=== PATIENT | female | born 1955 | race Caucasian/White ===

== ENCOUNTER 2017-08-12 11:18 | Outpatient (CLI) | payer MEDICARE, MEDICAID ==
[2017-08-12 13:19] LABS: Hemoglobin 13.9 g/dL (12.0-16.0); Mean Corpuscular HGB CONC 32.8 g/dL (32.0-36.0); Mean Corpuscular Hemoglobin 30.9 pg (27.0-31.0); Mean Corpuscular Volume 94.1 fl (81.0-99.0); Mean Platelet Volume 8.9 fL (7.4-10.4); Platelet Count 246 thou/uL (130-400); RBC Distribution Width 12.3 % (11.5-14.5); Red Blood Cell (RBC) Count 4.51 mill/uL (4.20-5.40); White Blood Cell (WBC) Count 4.3 thou/uL (4.8-10.8)
[2017-08-12 13:37] LABS: Anion Gap 15 mmol/L (10-20); BUN (Urea Nitrogen) 17 mg/dL (9.8-20.1); Calc. Creatinine Clearance 0 mL/min (70-130); Calcium 9.6 mg/dL (7.8-10.44); Carbon Dioxide 20 mmol/L (23-31); Chloride 106 mmol/L (98-107); Estimated GFR-MDRD 68; Glucose 99 mg/dL (80-115); Potassium 4.4 mmol/L (3.5-5.1); Sodium 137 mmol/L (136-145)
== END 2017-08-12 11:19 | disposition home or self-care (01) ==
LOC: LABBT 11:18
PROVIDERS: ATTEND Internal Medicine Cardiovascular Disease
DX: Z01.812 Encounter for preprocedural laboratory examination (principal); I48.0 Paroxysmal atrial fibrillation
CPT/HCPCS: 80048; 85027

== ENCOUNTER 2017-08-12 13:43 | Outpatient (CLI) | payer MEDICARE, MEDICAID | END 2017-08-12 13:44 | disposition home or self-care (01) | LOC: BICMAMMO 13:43 | PROVIDERS: ATTEND Family Medicine | DX: Z78.0 Asymptomatic menopausal state (principal); M85.88 Other specified disorders of bone density and structure, other site | CPT/HCPCS: 77080 ==

== ENCOUNTER 2017-08-17 05:55 | Day surgery (SDC) | payer MEDICARE, MEDICAID ==
[2017-08-12 11:38] VITALS: BMI 32.4
[2017-08-17] MEDS ORDERED: Diprivan 20 ML ONE (08:48)
--- NOTE | 2017-08-17 10:46 | ECHO ---
PROCEDURE NOTE: Date: 08/17/17 PROCEDURE: Transesophageal echocardiogram. DETAILS: This is a 62-year-old female with a long history of intermittent atrial fibrillation and has undergon e on ablation. She now has developed atrial flutter. She also had a flutter ablation in April 2016 . She was started on Multaq. She continues to be in atrial flutter and today she was advised to under go a transesophageal echocardiogram, as well as electrocardioversion of atrial flutter back to normal sinus rhythm. She was taken to recovery area where she underwent short-acting propofol. The transeso phageal probe was easily passed down the distal esophagus. IMPRESSION: 1. Normal left ventricular systolic function. Ejection fraction 50-55%. 2. Mild tricuspid valve regurgitation. 3. Mild mitral valve regurgitation. 4. Smoke formation in the left atrium and also smoke formation in the left atrial appendage, but no clear thrombus was noted. The patient tolerated the procedure well without difficulties or complications.
--- NOTE | 2017-08-17 10:48 | OP ---
CARDIOVERSION: Using one attempt at 100 joules, the patient was successfully converted from her atrial flutter back to normal sinus rhythm with a heart rate in the 60s. There were no difficulties or complications enco untered. She was given short-acting propofol for the procedure and tolerated the procedure well.
--- NOTE | 2017-08-17 11:58 | DIS ---
This was an outpatient procedure for Rpua Dutta. DATE OF PROCEDURE: 08/17/2017 She was seen in the outpatient facility due to atrial flutter. She was advised to undergo a cardiove rsion. She was taken to recovery area where she underwent the procedure today without difficulties o r complications. DISCHARGE MEDICATIONS: Her discharge medications are the same as her admission medications. These i nclude multivitamins, calcium, chewable fiber, probiotics, vitamin D3, magnesium, Eliquis 5 mg b.i.d. , alprazolam 0.5 mg as needed, fish oil, Claritin, iron tablets, triazolam, Lipitor 20 mg a day, Flon ase allergy relief nasal spray, vitamin B12, vitamin C, losartan/hydrochlorothiazide 100/12.5 daily, metoprolol 25 mg half a tablet daily, Norvasc 5 mg a day, Multaq 400 mg b.i.d. Her followup will be with me in the next 2-4 weeks in the office. She will continue her routine foll owups with Dr. Jc Soni. PROCEDURES IN HOSPITAL: Transesophageal echocardiogram and also electrocardioversion of atrial flutt er back to sinus rhythm. There were no difficulties or complications encountered. The patient sanya ated the procedure well. When she is stable she will be discharged to home.
[2017-08-17] MEDS ORDERED: Propofol 200 MG/20 ML VIAL ONE (15:20)
--- NOTE | 2017-08-17 20:05 | EKG ---
Test Reason : POST ARTHUR/CARDIOVERSI Blood Pressure : / mmHG Vent. Rate : 061 BPM Atrial Rate : 061 BPM P-R Int : 286 ms QRS Dur : 084 ms QT Int : 466 ms P-R-T Axes : 086 028 054 degrees QTc Int : 469 ms Sinus rhythm with 1st degree A-V block Otherwise normal ECG When compared with ECG of 28-APR-2016 21:12, No significant change was found Confirmed by SCOTTY PICHARDO, . S. (4) on 08/17/2017 8:05:17 PM Referred By: JOEY Confirmed By:DR. Nils FAJARDO MD
== END 2017-08-17 10:25 | disposition home or self-care (01) ==
LOC: CCL 05:55
PROVIDERS: ATTEND Internal Medicine Cardiovascular Disease
PROC: 5A2204Z Restoration of Cardiac Rhythm, Single (ICD-10-PCS; principal; 2017-08-17)
DX: I48.92 Unspecified atrial flutter (principal); I48.0 Paroxysmal atrial fibrillation; I08.1 Rheumatic disorders of both mitral and tricuspid valves; E78.5 Hyperlipidemia, unspecified; I10 Essential (primary) hypertension; E11.9 Type 2 diabetes mellitus without complications; Z82.49 Family history of ischemic heart disease and other diseases of the circulatory system; Z79.51 Long term (current) use of inhaled steroids; Z79.01 Long term (current) use of anticoagulants; Z79.899 Other long term (current) drug therapy
CPT/HCPCS: 92960; 93005; 93010; 93312; J2704

== ENCOUNTER 2017-12-20 20:30 | Outpatient (CLI) | payer MEDICARE, MEDICAID | END 2017-12-20 20:31 | disposition home or self-care (01) | LOC: SLEEPLAB 20:30 | PROVIDERS: ATTEND Family Medicine | DX: G47.33 Obstructive sleep apnea (adult) (pediatric) (principal); G47.30 Sleep apnea, unspecified; R53.83 Other fatigue; I48.91 Unspecified atrial fibrillation; G31.84 Mild cognitive impairment of uncertain or unknown etiology; E66.9 Obesity, unspecified; R06.83 Snoring; F41.9 Anxiety disorder, unspecified; K21.9 Gastro-esophageal reflux disease without esophagitis; I10 Essential (primary) hypertension | CPT/HCPCS: 95811 ==

== ENCOUNTER 2018-01-29 13:34 | Outpatient (CLI) | payer MEDICARE, MEDICAID | END 2018-01-29 13:35 | disposition home or self-care (01) | LOC: BICRAD 13:34 | PROVIDERS: ATTEND Family Medicine | DX: M54.2 Cervicalgia (principal); M47.892 Other spondylosis, cervical region | CPT/HCPCS: 72050 ==

== ENCOUNTER 2018-07-01 08:56 | Observation (INO) | payer MEDICARE, MEDICAID ==
[2018-06-30 11:41] VITALS: BMI 34.2
[2018-07-01] MEDS ORDERED: Furosemide 40 MG/4 ML VIAL ONE (09:15)
[2018-07-01] MEDS ORDERED: Heparin 10,000 UNITS/1 ML VIAL ONE ×3 (09:15→11:30)
[2018-07-01] MEDS ORDERED: Protamine Sulfate 50 MG/5 ML VIAL ONE (09:15)
[2018-07-01] MEDS ORDERED: Phenylephrine HCL 10 MG/ML VIAL ONE (09:15)
[2018-07-01 09:55] LABS: #Monocytes 0.3 thou/uL (0.11-0.59); #Neutrophils 2.1 thou/uL (1.40-6.50); %Basophils 1.1 % (0.0-1.0); %Eosinophils 0.9 % (0.0-10.0); %Lymphocytes 30.1 % (21.0-51.0); %Monocytes 8.1 % (0.0-10.0); %Neutrophils 59.7 % (42.0-75.0); Hemoglobin 12.3 g/dL (12.0-16.0); Mean Corpuscular HGB CONC 31.3 g/dL (32.0-36.0); Mean Corpuscular Hemoglobin 28.8 pg (27.0-31.0); Mean Corpuscular Volume 92.3 fL (78.0-98.0); Platelet Count 215 thou/uL (130-400); RBC Distribution Width 12.1 % (11.5-14.5); Red Blood Cell (RBC) Count 4.28 mill/uL (4.20-5.40); White Blood Cell (WBC) Count 3.5 thou/uL (4.8-10.8)
[2018-07-01 09:58] LABS: INR-International Normal Ratio 1.4; PTT 29.3 SEC (22.9-36.1); Prothrombin Time 17.1 SEC (12.0-14.7)
[2018-07-01] MEDS ORDERED: Midazolam HCl 2 mg/2 ml Vial ONE (10:01)
[2018-07-01] MEDS ORDERED: Fentanyl 100 MCG/2 ML VIAL ONE (10:01)
[2018-07-01 10:13] LABS: Anion Gap 13 mmol/L (10-20); BUN (Urea Nitrogen) 15 mg/dL (9.8-20.1); Calc. Creatinine Clearance 112 mL/min (70-130); Calcium 9.7 mg/dL (7.8-10.44); Carbon Dioxide 25 mmol/L (23-31); Chloride 105 mmol/L (98-107); Estimated GFR-MDRD 83; Glucose 111 mg/dL (80-115); Sodium 139 mmol/L (136-145)
[2018-07-01] MEDS ORDERED: Heparin 25,000 units/D5W 0 ML ONE ×2 (11:15→12:19)
[2018-07-01] MEDS ORDERED: Heparin 25,000 units/D5W 500 ML ONE (12:25)
--- NOTE | 2018-07-01 13:20 | EKG ---
Test Reason : PREOP Blood Pressure : / mmHG Vent. Rate : 056 BPM Atrial Rate : 300 BPM P-R Int : 000 ms QRS Dur : 088 ms QT Int : 454 ms P-R-T Axes : 000 026 035 degrees QTc Int : 438 ms Atrial Flutter Abnormal ECG When compared with ECG of 17-AUG-2017 09:15, Atrial Flutter has replaced Sinus rhythm Confirmed by SCOTTY PICHARDO, DR. Wray (4) on 07/01/2018 1:20:17 PM Referred By: CATHERINE Confirmed By:DR. Nils FAJARDO MD
[2018-07-01] MEDS ORDERED: Isoproterenol 0.2 MG/1 ML AMP ONE (14:25)
[2018-07-01] MEDS ORDERED: HYDROcodone/Acetaminophen 5/325 mg Tablet PO PRN ×2 (15:45)
[2018-07-01] MEDS ORDERED: Ondansetron PF 4 MG/2 ML Vial ONE (17:12)
[2018-07-01] MEDS ORDERED: PHENYLEPHRINE-NS 100 MCG/ML 10 ML SYRINGE ONE (17:12)
[2018-07-01] MEDS ORDERED: Lidocaine 1% PF 5 ML VIAL ONE (17:12)
[2018-07-01] MEDS ORDERED: Dexamethasone 20 MG/5 ML VIAL ONE (17:12)
[2018-07-01] MEDS ORDERED: PROPOFOL 200 MG/20 ML VIAL ONE (17:12)
[2018-07-01] MEDS ORDERED: Rocuronium Bromide 10 MG/ML (10ML VIAL) ONE (17:12)
[2018-07-01] MEDS ORDERED: ALPRAZolam 1 MG TAB PO PRN (19:51)
[2018-07-01] MEDS ORDERED: TRIAZOLAM 0.25 MG PO PRN (20:01)
[2018-07-01] MEDS ORDERED: Folic Acid 1 MG TAB PO SCH (21:00)
[2018-07-01] MEDS ORDERED: Ubidecarenone 50 MG CAP PO SCH ×2 (21:00)
[2018-07-01] MEDS ORDERED: Calcium Citrate 950 MG TAB PO SCH (21:00)
[2018-07-01] MEDS: Fish Oil 1,000 MG CAP PO SCH (21:00)
[2018-07-01] MEDS ORDERED: Hydrochlorothiazide 25 MG TAB PO SCH (21:00)
[2018-07-01] MEDS ORDERED: Losartan 25 MG TAB PO SCH (21:00)
[2018-07-01] MEDS ORDERED: Magnesium Oxide 250 MG TAB PO SCH (21:00)
[2018-07-01] MEDS: Apixaban 5 MG TAB PO SCH (21:01)
--- NOTE | 2018-07-01 22:56 | OP ---
DATE OF PROCEDURE: 07/01/2018 PROCEDURES PERFORMED: 1. Comprehensive EP testing with left atrial pacing and recording. 2. Transseptal catheterization x2. 3. A 3-dimensional mapping and ablation of atrial fibrillation. 4. Intracardiac echocardiography. CLINICAL INDICATION: Drug refractory atrial fibrillation. ASA CLASSIFICATION: 3. ANESTHESIA: General endotracheal anesthesia per Anesthesiology. ADDITIONAL CARDIAC MEDICATIONS: Isoproterenol 10 mcg/min infusion. ESTIMATED BLOOD LOSS: Less than 10 mL. TOTAL HEPARIN GIVEN: 17,000 units. TOTAL PROTAMINE GIVEN: 40 mg. ACUTE COMPLICATIONS: None apparent. TOTAL RF TIME: 38 minutes 53 seconds. METHODS: After informed consent was obtained, the patient was taken to the EP lab in a fasting state. Both groins were prepped and draped using ultrasound guidance. The right and left femoral veins were accessed and wires were inserted into the central venous system. The wires were used to place an 11-Slovenian and an 8-Slovenian sheaths in the left groin and two 8-Slovenian sheaths in the right groin. All 8-Slovenian sheaths were then replaced by long sheaths for catheter stability. An echo probe was placed in the left groin and advanced to the right atrium and right ventricle for imaging. A 20-pole catheter was placed in the left groin and advanced to the coronary sinus. The proximal end was in the james terminalis for mapping. A circular and ablation catheter was placed in the right femoral vein and advanced to the right atrium. A 3D map was obtained of the right atrium and the coronary sinus. The patient was then anticoagulated, and transseptal catheterization was performed on 2 occasions. Wires were inserted into left atrium. An esophageal temperature probe was co-located with a sensor. Catheter was placed in the esophagus and advanced to the posterior wall of the left atrium for temperature monitoring. A 3D map was obtained in the left atrium, and the patient had fractionated signals. Ablation and isolation of left atrial appendage were required, and extensive ablation of the right atrial james and the right atrial appendage were also performed. This patient's arrhythmias. The patient did require cardioversion to restore sinus rhythm. At the conclusion of procedure, catheters were withdrawn, sheaths were pulled, hemostasis was achieved with direct pressure. RESULTS: 1. Baseline intervals; QRS duration 82 milliseconds, QT interval 423 milliseconds, HV interval 45 milliseconds. 2. atrial fibrillation. Mapping was performed in left atrium. All 4 pulmonary veins were isolated from the previous ablation. Additional lesions were placed along the posterior wall and on the roof of the left atrium at fractionated signals, and complete isolation of left atrial appendage was performed. The patient's extravenous drivers were then seen in the right atrium along the james terminalis and right atrial appendage. These were ablated, debulked, and the patient had cardioversion to restore sinus rhythm. 3. Ablation details, a total of 38 minutes 53 seconds of RF energy was delivered and most of this was in the right atrium, but this does include isolation of the left atrial appendage for treatment of atrial fibrillation. IMPRESSION: Successful pulmonary vein antral isolation with re-isolation of the roof of the floor of the left atrium, complete isolation of left atrial appendage, and heavy aggressive debulking of the james terminalis and the right atrial appendage. RECOMMENDATION: 23-hour observation. Job ID: [id number]
[2018-07-02] MEDS: Fish Oil 1,000 MG CAP PO SCH (08:59)
[2018-07-02] MEDS ORDERED: PARoxetine 20 MG TAB PO SCH (09:00)
[2018-07-02] MEDS ORDERED: Fluticasone Propionate Nasal Spray 16 gm Bottle NASAL SCH (09:00)
[2018-07-02] MEDS ORDERED: Multivitamin W/ Minerals 1 TAB PO SCH (09:00)
[2018-07-02] MEDS ORDERED: Lactinex Tablet PO SCH (09:00)
[2018-07-02] MEDS ORDERED: Loratadine 10 MG TAB PO SCH (09:00)
[2018-07-02] MEDS: Apixaban 5 MG TAB PO SCH (09:01)
[2018-07-02 12:11] VITALS: BP 119/59; TEMP 98.7
--- NOTE | 2018-07-02 12:41 | DIS ---
DATE OF ADMISSION: 07/01/2018 DATE OF DISCHARGE: 07/02/2018 SURGEON: Pete Jorgensen MD ADMITTING DIAGNOSIS: Atrial arrhythmias. PROCEDURES PERFORMED: 1. Comprehensive EP testing with left atrial pacing recording. 2. Transseptal catheterization x2. 3. Three dimensional mapping and ablation of atrial fibrillation. 4. Intracardiac echocardiography. SUBJECTIVE: Ms. Dutta is a very pleasant 63-year-old woman with a prior history of left atrial ablation, mitral isthmus flutter ablation, right-sided CTI ablation in the past. In spite of this, she has had recurrences, but has been doing fairly well on Multaq, though has not captured normal rhythm. It was decided to proceed with pulmonary venous antrum isolation and ablation, which was performed on 07/01/[address] Jorgensen. Also, she has had a left atrial appendage clot in the past and likely requires long-term anticoagulation and possibly a Watchman in the future. Ms. Dutta is feeling well postablation. She does not have any cardiac concerns or complaints. She has not had any heart racing, palpitations, chest pain, pressure, syncope, near syncope, stroke, stroke-like symptoms. She is voiding well without difficulty. She is tolerating p.o. intake. Her groin sites are nontender and have not had any bleeding issues overnight. She denies any shortness of breath, and is able to breathe easily lying flat. REVIEW OF SYSTEMS: An 8-point review of systems is conducted, is negative except that was listed above in HPI. OBJECTIVE: VITAL SIGNS: Temperature 98.1, pulse 78, blood pressure 118/59, respirations 20, and oxygen is 94% on room air. GENERAL: The patient is alert and oriented. Speech is clear. Affect is appropriate. NECK: Supple without jugular venous distention. LUNGS: Clear to auscultation. Respirations are even and unlabored. ABDOMEN: Soft and nontender without palpable masses. Hepatojugular reflux is negative. EXTREMITIES: Warm and dry to touch without clubbing, cyanosis, or edema. NEUROLOGIC: Grossly intact and nonfocal. Gait is stable. DIAGNOSTIC STUDIES: Telemetry and EKG today reflect sinus rhythm with mild first-degree AV block, 240 milliseconds. IMPRESSION: Successful pulmonary vein antral isolation with re-isolation of the roof of the floor of the left atrium, complete isolation of the left atrial appendage, and heavy aggressive debulking of the james terminalis in the right atrial appendage. RECOMMENDATIONS: 23-hour observation and lifelong anticoagulation or consideration for Watchman for left atrial appendage closure given the isolation of left atrial appendage for the treatment of atrial fibrillation. Ablation time totals 38 minutes and 53 seconds, RF energy lesions delivered. DISCHARGE INSTRUCTIONS: Routine followup with [facility] in 6 weeks is requested. Continue Eliquis indefinitely postablation and contact [facility] before ever stopping this medication. Job ID: [id number]
== END 2018-07-02 12:57 | disposition home or self-care (01) ==
LOC: CCL 08:56 → 2SW 17:15
PROVIDERS: ADMIT Internal Medicine Cardiovascular Disease; ATTEND Internal Medicine Cardiovascular Disease
PROC: 02573ZK Destruction of Left Atrial Appendage, Percutaneous Approach (ICD-10-PCS; principal; 2018-07-01)
PROC: 02583ZZ Destruction of Conduction Mechanism, Percutaneous Approach (ICD-10-PCS; 2018-07-01)
PROC: 02K83ZZ Map Conduction Mechanism, Percutaneous Approach (ICD-10-PCS; 2018-07-01)
PROC: 4A023FZ Measurement of Cardiac Rhythm, Percutaneous Approach (ICD-10-PCS; 2018-07-01)
PROC: 4A0234Z Measurement of Cardiac Electrical Activity, Percutaneous Approach (ICD-10-PCS; 2018-07-01)
DX: I48.1 Persistent atrial fibrillation (principal); Z79.51 Long term (current) use of inhaled steroids; Z79.01 Long term (current) use of anticoagulants; Z79.899 Other long term (current) drug therapy
CPT/HCPCS: 76942; 80048; 85025; 85347 ×2; 85610; 85730; 92960; 93005 ×2; 93613; 93623; 93655; 93656; 93662; C1731; C1732 ×3; C1759; C1769; G0378; 93010; J1100; J1644; J1940; J2001; J2250; J2370; J2405; J2704; J2720; J3010

== ENCOUNTER 2018-11-01 19:30 | Outpatient (CLI) | payer MEDICARE, MEDICAID | END 2018-11-01 19:31 | disposition home or self-care (01) | LOC: SLEEPLAB 19:30 | PROVIDERS: ATTEND Internal Medicine | DX: G47.33 Obstructive sleep apnea (adult) (pediatric) (principal); R53.83 Other fatigue; K21.9 Gastro-esophageal reflux disease without esophagitis; R06.83 Snoring; F41.9 Anxiety disorder, unspecified; G47.00 Insomnia, unspecified; I10 Essential (primary) hypertension; I48.91 Unspecified atrial fibrillation; E66.9 Obesity, unspecified; G47.31 Primary central sleep apnea; Z68.33 Body mass index [BMI] 33.0-33.9, adult | CPT/HCPCS: 95811 ==

== ENCOUNTER 2019-02-07 12:09 | Outpatient (CLI) | payer MEDICARE, MEDICAID | END 2019-02-07 12:10 | disposition home or self-care (01) | LOC: ULT 12:09 | PROVIDERS: ATTEND Internal Medicine | DX: I10 Essential (primary) hypertension (principal); I08.1 Rheumatic disorders of both mitral and tricuspid valves; I70.90 Unspecified atherosclerosis | CPT/HCPCS: 93306 ==

== ENCOUNTER 2019-05-27 20:30 | Outpatient (CLI) | payer MEDICARE, MEDICAID | END 2019-05-27 20:31 | disposition home or self-care (01) | LOC: SLEEPLAB 20:30 | PROVIDERS: ATTEND Internal Medicine | DX: G47.33 Obstructive sleep apnea (adult) (pediatric) (principal); R53.83 Other fatigue; R06.83 Snoring; R35.1 Nocturia; G47.10 Hypersomnia, unspecified; I48.91 Unspecified atrial fibrillation; E66.9 Obesity, unspecified; Z68.34 Body mass index [BMI] 34.0-34.9, adult | CPT/HCPCS: 95811 ==

== ENCOUNTER 2019-08-04 13:46 | Inpatient (IN) | payer MEDICARE, MEDICAID ==
[2019-08-04 14:26] LABS: #Eosinphils 0.1 thou/uL (0.0-0.7); #Lymphocytes 0.9 thou/uL (1.20-3.40); #Monocytes 0.5 thou/uL (0.11-0.59); #Neutrophils 2.1 thou/uL (1.40-6.50); %Basophils 1.3 % (0.0-1.0); %Eosinophils 1.8 % (0.0-10.0); %Lymphocytes 24.8 % (21.0-51.0); %Monocytes 12.7 % (0.0-10.0); %Neutrophils 59.3 % (42.0-75.0); Hemoglobin 7.5 g/dL (12.0-16.0); Mean Corpuscular HGB CONC 32.4 g/dL (32.0-36.0); Mean Corpuscular Hemoglobin 28.1 pg (27.0-31.0); Mean Corpuscular Volume 86.5 fL (78.0-98.0); Mean Platelet Volume 7.8 fL (7.4-10.4); Platelet Count 355 thou/uL (130-400); RBC Distribution Width 14.9 % (11.5-14.5); Red Blood Cell (RBC) Count 2.66 mill/uL (4.20-5.40); White Blood Cell (WBC) Count 3.6 thou/uL (4.8-10.8)
[2019-08-04 14:58] LABS: ALT (SGPT) 12 U/L (8-55); AST (SGOT) 13 U/L (5-34); Albumin 4.1 g/dL (3.4-4.8); Alkaline Phosphatase 91 U/L (40-110); Anion Gap 13 mmol/L (10-20); BUN (Urea Nitrogen) 15 mg/dL (9.8-20.1); Bilirubin, Total 0.2 mg/dL (0.2-1.2); Calc. Creatinine Clearance 0 mL/min (70-130); Carbon Dioxide 27 mmol/L (23-31); Chloride 105 mmol/L (98-107); Estimated GFR-MDRD 69; Globulin 2.7 g/dL (2.4-3.5); Glucose 151 mg/dL (80-115); Potassium 3.7 mmol/L (3.5-5.1); Protein, Total 6.8 g/dL (6.0-8.3); Sodium 141 mmol/L (136-145)
[2019-08-04 17:24] LABS: Reticulocyte Count 1.7 % (0.5-1.5)
[2019-08-04] MEDS ORDERED: Pantoprazole 40 MG VIAL ONE (18:44)
[2019-08-04] MEDS: Pantoprazole 80 MG, Admixture Fee 1 EACH in Sodium Chloride 0.9% 100 ML IVPB SCH (19:54)
[2019-08-04 19:58] VITALS: BMI 33.6
[2019-08-04] MEDS ORDERED: Acetaminophen 650 MG Suppository PR PRN (20:57)
[2019-08-04] MEDS ORDERED: Acetaminophen 325 MG TAB PO PRN (20:57)
[2019-08-04 23:39] LABS: Hemoglobin 8.1 g/dL (12.0-16.0)
--- NOTE | 2019-08-05 00:24 | HP ---
TIME OF ASSESSMENT: 1999 CHIEF COMPLAINT: Anemia with episode of severe rectal bleeding 2 weeks ago. PRIMARY CARE PHYSICIAN: Dr. Jc Soni. HISTORY OF PRESENT ILLNESS: Ms. Dutta is a pleasant 64-year-old woman who presented to the emergency department as instructed by her primary care physician due to anemia noted on labs done yesterday. The patient was found to have a hemoglobin of 7. She was recommended a transfusion. The patient states she has been feeling lightheaded at times and with some shortness of breath on exertion. Reports having issues with anemia in the past. She underwent an EGD and colonoscopy in July of 2017 and was noted to have a hiatal hernia, otherwise examinations were unremarkable. The patient states that she did experience severe rectal bleeding 2 weeks ago for 1 day. She states the next morning, the rectal bleeding resolved, but she had multiple bowel movements with bright red blood per rectum. She states it was large quantities. Since then, she has had no recurrent rectal bleeding and denies any melena. No nausea, vomiting, or hematemesis. Reports having one episode of abdominal discomfort 2 weeks ago when the rectal bleeding occurred, but since then has not had any abdominal pain. Denies having any syncope or presyncopal episodes. Denies any chest pain. Does report mild shortness of breath with exertion. At present, she states she feels well in herself and denies any complaints. No recent fevers, chills, or sweats. No headaches or dizziness. All other review of systems are negative. Of note, patient has a known history of atrial fibrillation and is on chronic anticoagulation with Eliquis. However, after having the severe episode of bleeding 2 weeks ago, she has been off Eliquis. Her last echo was done February 07, 2019, showing an EF of 50% to 55% with a moderately to severely dilated left atrium, mild AV sclerosis, mild MR, and mild TR. EMERGENCY DEPARTMENT COURSE: In the emergency department, she was started on Protonix. She also was given fluids at 125 mL/h. She had laboratory studies done that were notable for a hemoglobin of 7.5, white count was 3.6, hematocrit 23. Her sodium was 141, potassium 3.7, BUN 15, creatinine 0.83, GFR 69, glucose 151, magnesium 1.9. LFTs unremarkable. ALLERGIES: NO KNOWN DRUG ALLERGIES. CURRENT MEDICATIONS: 1. Eliquis. 2. Diltiazem. 3. Fluticasone. 4. Gabapentin. 5. Loratadine. 6. Losartan. 7. Multaq. 8. Pantoprazole. 9. Paroxetine. PHYSICAL EXAMINATION: GENERAL: The patient appears well developed, well nourished, is in no acute distress. VITAL SIGNS: Temperature 98.3, pulse 68, respirations 18, O2 saturation 94% on room air, blood pressure 135/55. HEENT: Normocephalic and atraumatic. Pupils equal, round, and reactive to light. Sclerae without icterus. Oropharynx is clear. NECK: Supple. LUNGS: Clear to auscultation bilaterally without any wheezes, rales, or rhonchi. CARDIAC: Regular rate and rhythm without audible murmurs, rubs, or gallops. ABDOMEN: Soft, nontender, nondistended. Normoactive bowel sounds present. No guarding or rigidity. No renal angle tenderness. EXTREMITIES: No lower leg swelling or edema. Peripheral pulses equal bilaterally. SKIN: Warm and dry. NEUROLOGIC: Alert and oriented x3. No neuro deficits on exam. INVESTIGATIONS: As mentioned above in HPI. IMPRESSION AND PLAN: Ms. Dutta is a pleasant 64-year-old woman, presenting due to symptomatic anemia, found to have a low hemoglobin of 7 when getting routine labs with her PCP, therefore prompted to come to the emergency department. She is being admitted for the following. 1. Symptomatic anemia. The patient with recent rectal bleeding 2 weeks ago that resolved. She was checked for occult blood in the ED and this was negative. The patient has received 1 unit of packed red blood cells. We will recheck H and H and continue to monitor. We will continue pantoprazole. We will consult GI. We will continue to hold Eliquis. 2. Atrial fibrillation. The patient with Eliquis on hold. We will resume other home medications including diltiazem once verified. We will obtain a baseline EKG. We will add BMP to labs as she was given IV fluids in the ED. She had an echo done January 2019. 3. Hypertension. Monitor blood pressure. Resume home medications once verified. 4. Deep venous thrombosis prophylaxis. Anticoagulation on hold. Patient ambulatory. 5. Code status is full. Surrogate decision maker is Ute Dutta. Case discussed with attending who agrees with plan of care as described above. Job ID: [id number]
[2019-08-05 05:49] LABS: #Basophils 0.1 thou/uL (0.0-0.2); #Eosinphils 0.1 thou/uL (0.0-0.7); #Lymphocytes 0.9 thou/uL (1.20-3.40); #Monocytes 0.4 thou/uL (0.11-0.59); #Neutrophils 2.3 thou/uL (1.40-6.50); %Eosinophils 1.7 % (0.0-10.0); %Lymphocytes 23.3 % (21.0-51.0); %Monocytes 9.9 % (0.0-10.0); %Neutrophils 63.1 % (42.0-75.0); Hemoglobin 7.8 g/dL (12.0-16.0); Mean Corpuscular HGB CONC 32.3 g/dL (32.0-36.0); Mean Corpuscular Hemoglobin 28.2 pg (27.0-31.0); Mean Corpuscular Volume 87.4 fL (78.0-98.0); Mean Platelet Volume 7.8 fL (7.4-10.4); Platelet Count 262 thou/uL (130-400); RBC Distribution Width 14.5 % (11.5-14.5); Red Blood Cell (RBC) Count 2.77 mill/uL (4.20-5.40); White Blood Cell (WBC) Count 3.7 thou/uL (4.8-10.8)
[2019-08-05 05:56] LABS: INR-International Normal Ratio 1.1; PTT 26.8 SEC (22.9-36.1); Prothrombin Time 13.8 SEC (12.0-14.7)
[2019-08-05 06:11] LABS: Anion Gap 9 mmol/L (10-20); BUN (Urea Nitrogen) 9 mg/dL (9.8-20.1); Calc. Creatinine Clearance 115 mL/min (70-130); Calcium 8.8 mg/dL (7.8-10.44); Carbon Dioxide 30 mmol/L (23-31); Chloride 107 mmol/L (98-107); Estimated GFR-MDRD 89; Glucose 91 mg/dL (80-115); Potassium 4.4 mmol/L (3.5-5.1); Sodium 142 mmol/L (136-145)
[2019-08-05] MEDS: Pantoprazole 80 MG, Admixture Fee 1 EACH in Sodium Chloride 0.9% 100 ML IVPB SCH (06:16)
[2019-08-05] MEDS: Losartan 25 MG TAB PO SCH (08:35)
[2019-08-05] MEDS: Dronedarone HCl 400 MG TAB PO SCH ×2 (08:35→16:16)
[2019-08-05] MEDS: PARoxetine 20 MG TAB PO SCH (08:36)
[2019-08-05] MEDS: Hydrochlorothiazide 25 MG TAB PO SCH (08:36)
[2019-08-05] MEDS: Fluticasone Propionate Nasal Spray 16 gm Bottle NASAL SCH (08:37)
[2019-08-05] MEDS ORDERED: Mag-Al 1200 mg/1200 mg/30 ML UDCUP PO PRN (11:53)
[2019-08-05 13:14] LABS: Hemoglobin 8.6 g/dL (12.0-16.0)
--- NOTE | 2019-08-05 16:07 | PDOC.HOSPP ---
- Subjective Encounter Date: 08/05/19 Encounter Time: 10:45 Subjective: no bleeding per rectum or abd pain or nausea she recieved a unit of prbc overnight - Objective Vital Signs & Weight: Vital Signs (12 hours) Temp Pulse Resp BP Pulse Ox 08/05/19 08:35 67 08/05/19 08:11 98.2 F 67 16 112/72 94 L 08/05/19 08:00 94 L Weight Weight 189 lb 14.4 oz I&O: 08/04/19 08/05/19 08/06/19 06:59 06:59 06:59 Intake Total 240 Balance 240 Result Diagrams: 08/05/19 12:59 08/05/19 05:24 Hospitalist ROS - Medication Medications: Active Medications Generic Name Dose Route Start Last Admin Trade Name Freq PRN Reason Stop Dose Admin Acetaminophen 650 mg 08/04/19 20:57 08/05/19 10:22 Tylenol PO 650 mg Q4H PRN Administration Headache/Fever/Mild Pain (1-3) Al Hydroxide/Mg Hydroxide 30 ml 08/05/19 11:53 08/05/19 14:52 Maalox PO 30 ml Q6H PRN Administration Heartburn or Indigestion Cholecalciferol 5,000 units 08/05/19 09:00 08/05/19 08:35 Vitamin D3 PO 5,000 units QAM KEN Administration Diltiazem HCl 240 mg 08/05/19 09:00 08/05/19 08:35 Cardizem Cd PO 240 mg DAILY KEN Administration Dronedarone 400 mg 08/05/19 08:00 08/05/19 08:35 Multaq PO 400 mg BID-WM KEN Administration Fluticasone Propionate 0 gm 08/05/19 09:00 08/05/19 08:37 Flonase Nasal Dawson NASAL 2 spr QAM KEN Administration Hydrochlorothiazide 12.5 mg 08/05/19 09:00 08/05/19 08:36 Hydrochlorothiazide PO 12.5 mg DAILY EKN Administration Losartan Potassium 100 mg 08/05/19 09:00 08/05/19 08:35 Cozaar PO 100 mg DAILY KEN Administration Paroxetine HCl 60 mg 08/05/19 09:00 08/05/19 08:36 Paxil PO 60 mg DAILY KEN Administration - Exam General Appearance: awake alert Eye: PERRL, anicteric sclera ENT: no oropharyngeal lesions, moist mucosa Neck: supple, no JVD Heart: RRR, no murmur Respiratory: no wheezes, no rales Gastrointestinal: soft, non-tender, non-distended, normal bowel sounds Extremities: no cyanosis, no edema Neurological: cranial nerve grossly intact, no focal deficits Psychiatric: normal affect, A&O x 3 Hosp A/P (1) GI bleed Code(s): K92.2 - GASTROINTESTINAL HEMORRHAGE, UNSPECIFIED Status: Acute Qualifiers: GI bleed type/associated pathology: anorectal hemorrhage Qualified Code(s) : K62.5 - Hemorrhage of anus and rectum (2) Acute blood loss anemia Code(s): D62 - ACUTE POSTHEMORRHAGIC ANEMIA Status: Acute (3) h/o diverticulosis Status: Chronic (4) Anxiety Code(s): F41.9 - ANXIETY DISORDER, UNSPECIFIED Status: Chronic (5) GERD (gastroesophageal reflux disease) Code(s): K21.9 - GASTRO-ESOPHAGEAL REFLUX DISEASE WITHOUT ESOPHAGITIS Status: Chronic Qualifiers: Esophagitis presence: without esophagitis Qualified Code(s): K21.9 - Gastro -esophageal reflux disease without esophagitis (6) Hypertension Code(s): I10 - ESSENTIAL (PRIMARY) HYPERTENSION Status: Chronic Qualifiers: Hypertension type: essential hypertension Qualified Code(s): I10 - Essential (primary) hypertension (7) Paroxysmal atrial fibrillation Code(s): I48.0 - PAROXYSMAL ATRIAL FIBRILLATION Status: Chronic - Plan she recieved a unit of prbc overnight, Hb around 8g now d/w , pt prefers not to have any endoscopies now her last egd/colonoscopy was in 2018 by , did not have malignancy detected per patient, she has had prior colonoscopy by which showed diverticulosis per patient. continue multaq, cardizem cd, cozaar, hctz, paxil, gabapentin and protonix will get h/h in am if stable plan is for dc. resume oral full liquid diet
[2019-08-05] MEDS: Pantoprazole 40 MG VIAL IVP SCH (20:53)
[2019-08-05] MEDS ORDERED: Gabapentin 300 MG CAP PO SCH (21:00)
[2019-08-06] MEDS: Fluticasone Propionate Nasal Spray 16 gm Bottle NASAL SCH (08:36)
[2019-08-06] MEDS: Dronedarone HCl 400 MG TAB PO SCH (08:36)
[2019-08-06] MEDS: Hydrochlorothiazide 25 MG TAB PO SCH (08:37)
[2019-08-06] MEDS: PARoxetine 20 MG TAB PO SCH (08:37)
[2019-08-06] MEDS: Pantoprazole 40 MG VIAL IVP SCH (08:39)
[2019-08-06] MEDS: Losartan 25 MG TAB PO SCH (09:40)
[2019-08-06 10:42] LABS: #Eosinphils 0.1 thou/uL (0.0-0.7); #Lymphocytes 0.7 thou/uL (1.20-3.40); #Monocytes 0.4 thou/uL (0.11-0.59); #Neutrophils 2.1 thou/uL (1.40-6.50); %Basophils 1.1 % (0.0-1.0); %Eosinophils 1.7 % (0.0-10.0); %Lymphocytes 21.4 % (21.0-51.0); %Monocytes 11.1 % (0.0-10.0); %Neutrophils 64.7 % (42.0-75.0); Hemoglobin 8.6 g/dL (12.0-16.0); Mean Corpuscular HGB CONC 32.1 g/dL (32.0-36.0); Mean Corpuscular Hemoglobin 28.1 pg (27.0-31.0); Mean Corpuscular Volume 87.4 fL (78.0-98.0); Mean Platelet Volume 7.8 fL (7.4-10.4); Platelet Count 305 thou/uL (130-400); RBC Distribution Width 14.9 % (11.5-14.5); Red Blood Cell (RBC) Count 3.07 mill/uL (4.20-5.40); White Blood Cell (WBC) Count 3.2 thou/uL (4.8-10.8)
[2019-08-06 11:05] LABS: Anion Gap 12 mmol/L (10-20); BUN (Urea Nitrogen) 9 mg/dL (9.8-20.1); Calc. Creatinine Clearance 110 mL/min (70-130); Carbon Dioxide 28 mmol/L (23-31); Chloride 106 mmol/L (98-107); Estimated GFR-MDRD 84; Glucose 131 mg/dL (80-115); Potassium 4.4 mmol/L (3.5-5.1); Sodium 142 mmol/L (136-145)
[2019-08-06 12:22] VITALS: BP 114/71; TEMP 98.3
--- NOTE | 2019-08-07 08:51 | CON ---
DATE OF CONSULTATION: 08/05/2019 REASON FOR CONSULTATION: Hematochezia, anemia due to blood loss. HISTORY OF PRESENT ILLNESS: Ms. Rupa Dutta is a very pleasant 64-year-old female with history of atrial fibrillation for several years. She has Eliquis over the years. The patient has had a large amount of blood per rectum a couple of weeks ago. The bleeding lasted for one day and subsequently subsided. She bleeding. She had no fever or chills. No abdominal pain. No nausea or vomiting. The patient was seen by Dr. Jc Soni and had a CBC done and was found to be profoundly anemic. She had a CBC done as outpatient and was found to have hemoglobin 7. The patient also complained of dizziness and generalized fatigue, weakness and poor energy over the last couple of weeks since the bleeding. The patient has had 1 bleeding over the last two weeks. The patient stopped taking Eliquis a few days ago because of bleeding. The patient tells me she has had recurrent bleeding over the last 10 years. She has seen Dr. Trudy Crane. She had a colonoscopy and EGD in the past and another one was done by Dr. Josef Cobb in 2018. As per the patient, the EGD showed a hiatal hernia and colonoscopy was basically negative. She was told that she could have some bleeding from diverticular disease. She is not really sure if she had diverticula in the colonoscopy. I will access the medical records as this was done in Dr. Cobb's office two years ago. The patient was transfused 1 unit of packed RBCs on admission. The admitting CBC showed WBC 4300, hemoglobin 7.7, hematocrit 21.7. After 1 unit of packed RBCs, it came to 8.1, hematocrit 20.3. The patient had no dyspepsia, indigestion, abdominal pain. No dysphagia or odynophagia, but for symptoms of anemia, she has no specific GI symptoms. The patient tells me she has seen Dr. Pete Jorgensen, EP fabric pattern grader, and is supposed to have a Watchman procedure on the 15 of August in [place]. She had no relevant history. ALLERGIES: NONE. SOCIAL HISTORY: The patient does not smoke or drink alcohol. MEDICAL ILLNESSES: 1. Hypertension. 2. Seasonal allergies. 3. Cardiac arrhythmia. 4. Acid reflux. 5. Depression. 6. Hiatal hernia. SURGERIES: Include: 1. Gastric sleeve surgery [address] Elio Loving. 2. Appendectomy. 3. . 4. Skin grafting after weight loss and she has some skin removals. MEDICATIONS: List reviewed which include: 1. Eliquis. 2. Diltiazem. 3. Fluticasone nasal spray. 4. Gabapentin. 5. Loratadine. 6. Losartan. 7. Multaq. 8. Pantoprazole. 9. Paroxetine. FAMILY HISTORY: No family history of any cancer. No family history of any CVA or heart disease. REVIEW OF SYSTEMS: A 10-point system reviewed. CONSTITUTIONAL: History of fatigue, low energy, tiredness, and dizziness. The patient is having significant blood loss. No history of any fever or chills. No history of weight loss. HEAD: No chronic headache. EYES: No diplopia. No impaired vision. EARS: No hearing loss. No discharge. NOSE: No nose bleed. THROAT: No sore throat. No dysphagia or odynophagia. LUNGS: No chronic coughing or hemoptysis. CARDIOVASCULAR SYSTEM: No chest pain. No palpitation, dyspnea, orthopnea, PND. : Hematochezia. No history of any abdominal pain, nausea, vomiting. NEUROPSYCHIATRY: Nonrelevant. PHYSICAL EXAMINATION: GENERAL: The patient is a very pleasant female, appears very comfortable. She is awake, alert, oriented to time, place, and person. VITAL SIGNS: Her temperature 98.2 degrees Fahrenheit, pulse is 68 and blood pressure is 133/53. HEENT: Conjunctivae are clear. She appears slightly pale. NECK: Supple. No adenitis or thyromegaly noted. CARDIOVASCULAR SYSTEM: First and second heart sounds heard. LUNGS: Clear to auscultation. ABDOMEN: Soft. Abdomen has extensive scarring from sternum all the way to the hypogastric area. Abdomen is nontender. No organomegaly. No masses. Bowel sounds normal. LABORATORY DATA: Shows CBC 4300, hemoglobin 7.5, came to 8.1, subsequently dropped to 7.8. Hematocrit 24.2. MCV is 87.4. Platelet count is 266,000. Her chem-7 is normal. BUN is 15, creatinine 0.83, glucose 151. CLINICAL IMPRESSION: A 64-year-old female with recurrent GI bleeding and has had an EGD and colonoscopy in 2018. No pathology seen. She has had similar episodes in the past. She says she has had about six episodes over the last several years. At least 2 or 3 times, she did not seek any medical help and decided to wait it out at home. The patient complains of hematochezia, which occurred two weeks ago. She has no more recurrent bleeding. Etiology of bleeding includes possible AV malformation, possible diverticular bleeding, all from small bowel pathology. RECOMMENDATION: As she has had no active bleeding over the last 2 weeks, I believe there is no benefit in doing a tagged RBC scan. I did give the option of having a colonoscopy. The patient really does not want to undergo colonoscopy and she would prefer to go home. We talked to Dr. Arya Ring and explained to him if the blood count comes back to more than eight she can probably go home. However, if blood count remains low at 7.5 to 7.8, I will order and transfuse one more unit. I had a long talk with Ms. Dutta explained to her that she needs to come right away to the hospital if she has recurrence of bleeding next time. It seems right away possibly, we can do tagged RBC scan. Also imaging colon can be done. The patient most likely will go home today and will follow up with Dr. Jc Soni as outpatient. Job ID: [id number]
--- NOTE | 2019-08-07 16:36 | DIS ---
DATE OF ADMISSION: 08/04/2019 DATE OF DISCHARGE: 08/06/2019 DISCHARGE DISPOSITION: To home. PRIMARY DISCHARGE DIAGNOSIS: Acute blood loss anemia with rectal bleed that happened two weeks back. SECONDARY DISCHARGE DIAGNOSES: 1. History of diverticulosis. 2. Gastroesophageal reflux disease. 3. Anxiety disorder. 4. Hypertension. 5. Paroxysmal atrial fibrillation. PROCEDURES DONE DURING HOSPITALIZATION: The patient's hemoglobin and hematocrit were 7 and 21 on the day of admission. Discharge hemoglobin and hematocrit are 8.6 and 26, MCV is 87, platelet count 305. PT/INR and PTT within normal limits. BNP 105, BUN 9, creatinine 0.7, albumin is 4.1. INPATIENT CONSULT: Dr. Montenegro for Gastroenterology. DISCHARGE MEDICATIONS: 1. Cardizem CD 240 mg p.o. daily. 2. Vitamin D3 5000 units p.o. q.a.m. 3. Multaq 400 mg p.o. twice daily. 4. Flonase nasal spray p.r.n. 5. Gabapentin 300 mg p.o. q.p.m. 6. Losartan with hydrochlorothiazide 100/12.5 mg daily. 7. Multivitamin 1 tablet once daily. 8. Protonix 40 mg p.o. daily. 9. Paroxetine 60 mg p.o. daily. 10. Eliquis 5 mg twice daily to restart on 08/13/2019. 11. Ferrous sulfate 325 mg twice daily. ALLERGIES: NO KNOWN DRUG ALLERGIES. BRIEF COURSE DURING HOSPITALIZATION: The patient initially came to ER with complaints of feeling weak. She also had exertional shortness of breath and dizzy feeling. The patient revealed that she had melena two weeks back and had gone to see a primary care physician for routine labs. She was told she had hemoglobin of 7 g and was asked to go to the ER. The patient has had close monitoring done in the hospital with serial hemoglobin and hematocrit done. Her prior endoscopy and colonoscopy were in 2018, which did not have any malignancy then. She had a prior colonoscopy done by Dr. Yates prior to that, which showed diverticulosis per patient. In view of above EGD and colonoscopy, the patient did not want to have further procedures specifically endoscopies during this hospitalization. She was evaluated by Dr. Montenegro for Gastroenterology. The patient has been advised to follow up with her primary care physician, Dr. Jc Soni, in 1 week and she also needs to follow up with Dr. Yates, her genetics teacher in 2 weeks. She was given a unit of packed cell transfusion for hemoglobin of 7 g on arrival. Her hemoglobin and hematocrit have remained stable around 8.6 and 26. She is cleared for discharge by Dr. Montenegro. Please note I have seen and examined the patient on the day of discharge. Job ID: [id number]
--- NOTE | 2019-08-09 06:15 | PQF ---
RICHI RODRIGUEZ VINAYA KUMAR MD [id number] [id number] CLINICAL DOCUMENTATION CLARIFICATION FORM: POST DISCHARGE Addendum to original discharge summary date: ____ Late entry note date: __ DATE:08/09/2019 ATTN:Arya Harley Please exercise your independent, professional judgment in responding to the clarification form. Clinical indicators are provided on the bottom of this form for your review In your clinical opinion based on clinical findings below can you please identify the etiology of Rectal bleeding if due to: Please check appropriate box(s): [ ] Diverticulosis [ ] Adverse effect of anti-coagulant [ ] Other diagnosis [ x] Unable to determine For continuity of documentation, please document condition throughout progress notes and discharge summary. Thank You. CLINICAL INDICATORS - SIGNS / SYMPTOMS / LABS Laboratory 08/03 WBC 3.6, RBC 2.66, Hgb 7.5, Hct 23.0, Monocytes 12.7, PT 13.8 , INT 1.1, APTT 26.8 H&P p1 08/03 Willa CARDENAS Anemia with episode of severe rectal bleeding 2 weeks ago H&P p1 08/03 Willa CARDENAS the pt as found to have a hgb of 7. The pt states she has been felling lightheaded at times and with some SOB on exertion H&P p1 08/03 Willa CARDENAS Reports having one episode of abdominal discomfort 2 weeks antonietta when the rectal bleeding occurred, but since then has not hs any abdominal pain H&P p1 08/03 Willa CARDENAS known history of Afib and is on chronic anticoagulation with Eliquis. However, after having the severe episode of bleeding 2 weeks ago, she has been off Eliquis GE consult p1 08/04 Dr Montenegro Hematochezia, Anemia due to blood loss GE consult p3 08/04 Dr Montenegro Etiology of Bleeding includes possible AV malformation, possible diverticular bleeding, all from small bowel pathology DS p2 08/06 Dr Ring She had a prior colonoscopy done by Dr. Yates prior to that, which showed diverticulosis per patient. RISK FACTORS H&P p1 08/03 64-year-old woman H&P p1 08/03 Afib on anticoagulant H&P p2 08/03 Symptomatic Anemia GE consult p1 08/04 - Acid reflux TREATMENTS: Blood bank 08/03 - PRBC AUG 01 IV Protonix 40mg po MAR 08/03 IVF NS 1L AUG 01 Maalox 30ml po Stool Occult blood ordered 08/03 GE consult 08/03 Deborah Kaur (This form is maintained as a part of the permanent medical record) 2014 [email or web address], [email or web address]. All Rights Reserved [email or web address]
== END 2019-08-06 13:09 | disposition home or self-care (01) | DRG 812 ==
LOC: ERS 13:46 → T4-A 17:05
PROVIDERS: ADMIT Internal Medicine; ATTEND Internal Medicine
PROC: 30233N1 Transfusion of Nonautologous Red Blood Cells into Peripheral Vein, Percutaneous Approach (ICD-10-PCS; principal; 2019-08-04)
DX: D62 Acute posthemorrhagic anemia (principal); K62.5 Hemorrhage of anus and rectum; K21.9 Gastro-esophageal reflux disease without esophagitis; F41.9 Anxiety disorder, unspecified; I10 Essential (primary) hypertension; I48.0 Paroxysmal atrial fibrillation; F32.9 Major depressive disorder, single episode, unspecified; K57.30 Diverticulosis of large intestine without perforation or abscess without bleeding; J30.2 Other seasonal allergic rhinitis; Z90.49 Acquired absence of other specified parts of digestive tract; Z79.899 Other long term (current) drug therapy; Z79.01 Long term (current) use of anticoagulants; Z79.51 Long term (current) use of inhaled steroids
CPT/HCPCS: 36415; 36430; 80048; 80053; 82274; 83735; 83880; 85025; 85046; 85610; 85730; 86850; 86900; 86901; 94760; 96374; C9113; J3490; P9016

== ENCOUNTER 2019-10-12 13:50 | Outpatient (CLI) | payer MEDICARE, MEDICAID ==
--- NOTE | 2019-10-12 16:36 | BD ---
Exam: DEXA Bone Density 10/12/19 HISTORY: Postmenopausal. Lumbar Spine: BMD (g/cm2) T-SCORE L1 0.735 -2.3 L2 0.859 -1.5 L3 0.846 -2.2 L4 0.810 -2.3 L1-L4 0.811 -2.1 Left Femoral Neck: 0.714 -1.2 Total Femur: 0.638 -2.5 Impression: Osteopenia of the lumbar spine with a total bone mineral density of the left hip in the osteoporosis range. POS: C
== END 2019-10-12 13:51 | disposition home or self-care (01) ==
LOC: BICMAMMO 13:50
PROVIDERS: ATTEND Family Medicine
DX: Z13.820 Encounter for screening for osteoporosis (principal); Z78.0 Asymptomatic menopausal state; M81.0 Age-related osteoporosis without current pathological fracture; M85.88 Other specified disorders of bone density and structure, other site
CPT/HCPCS: 77080

== ENCOUNTER 2019-10-18 08:21 | Outpatient (CLI) | payer MEDICARE, MEDICAID ==
[2019-10-18 09:13] LABS: INR-International Normal Ratio 0.9; Prothrombin Time 12.5 sec (12.0-14.7)
[2019-10-18 09:14] LABS: Anion Gap 12 mmol/L (10-20); BUN (Urea Nitrogen) 19 mg/dL (9.8-20.1); Calc. Creatinine Clearance 0 mL/min (70-130); Calcium 9.5 mg/dL (7.8-10.44); Carbon Dioxide 29 mmol/L (23-31); Chloride 104 mmol/L (98-107); Estimated GFR-MDRD 86; Glucose 101 mg/dL (80-115); Potassium 4.4 mmol/L (3.5-5.1); Sodium 141 mmol/L (136-145)
--- NOTE | 2019-10-18 10:31 | CT ---
CT angiogram chest with contrast: DATE: 10/18/2019 HISTORY: 64-year-old female with atrial fibrillation and dyspnea. Evaluate left atrial appendage for thrombosi s. TECHNIQUE: IV injection of Isovue-370. Scanned twice and injected twice, but suboptimal contrast opacification o f major arteries and all 4 major cardiac chambers, but could opacification of the left atrial appendage. 3-D MIP reconstructions. Limited [id number] of lungs, especially right. FINDINGS: There is adequate contrast opacification of the left atrial appendage. This is a left atrial appendag e metallic closure device positioned at the neck of the left atrial appendage. No thrombosis of left atrial appendage identified. Small pericardial effusion. Small sliding hiatal hernia. Suture lines at esophagogastric junction and proximal stomach. No dissection or aneurysm involving aortic arch. Not enough contrast in the descending aorta to evaluate for dissection. No gross consolidation or large pleural effusion identif ied involving the limited central [id number]. Trachea and bilateral mainstem bronchi are patent and clear. No mediastinal lymphadenopathy. No pneumothorax. IMPRESSION: Despite left atrial closure device, there is no thrombosis of the left atrial appendage.
[2019-10-18] MEDS ORDERED: Iopamidol 370 76% 100 ML VIAL ONE (15:14)
== END 2019-10-18 08:22 | disposition home or self-care (01) ==
LOC: CT 08:21
PROVIDERS: ATTEND Internal Medicine Cardiovascular Disease
DX: I48.91 Unspecified atrial fibrillation (principal); Z79.899 Other long term (current) drug therapy; Z95.818 Presence of other cardiac implants and grafts
CPT/HCPCS: 36415; 71275; 80048; 85610; Q9967

== ENCOUNTER 2020-02-08 08:51 | Outpatient (CLI) | payer MEDICARE, MEDICAID ==
[2020-02-08 09:38] LABS: Estimated GFR-MDRD - POC Greater than 90
--- NOTE | 2020-02-08 10:09 | CT ---
CTA Angio Chest W WO Con 02/08/2020 12:00 AM Indication: History of atrial fibrillation and shortness of breath Technique: Multiple CTA images were obtained of the thorax with IV contrast. 3-D rendering: MIP mariusz nstructed images were created and reviewed. Comparison: Prior exam dated October 18, 2019 Findings: Pulmonary arteries: Beam scatter artifact from the patient's left atrial appendage) by slightly limi ts image detail of the pulmonary arterial tree. No definite central segmental pulmonary embolus is evident. Heart and Aorta: There is increased density seen within the left atrial appendage closure device shar picious for changes of interval endovascular coil placement within the left atrial appendage. Mediastinum:Normal appearing. No enlarged lymph nodes. Lungs:The lungs are clear. Pleural space: Clear. Upper Abdomen: There is a small hiatal hernia. There is a gastroplasty changes. Visualized liver, ad renal glands, pancreas and spleen appear within normal limits. There is layered gallstones within the gallbladder. Osseous Structures: No acute osseous abnormality. Soft tissues:No abnormality. Other findings:None. Impression: 1. No central or segmental pulmonary embolus. 2. Increased density seen within the central aspect of the left atrial appendage occlusion device shar picious for changes of interval endovascular coil placement. 3. Cholelithiasis, small hiatal hernia and gastroplasty changes.
[2020-02-08] MEDS ORDERED: Iopamidol 370 76% 100 ML VIAL ONE (16:12)
== END 2020-02-08 08:52 | disposition home or self-care (01) ==
LOC: BICCT 08:51
PROVIDERS: ATTEND Internal Medicine Cardiovascular Disease
DX: I48.19 Other persistent atrial fibrillation (principal); K80.20 Calculus of gallbladder without cholecystitis without obstruction; R93.1 Abnormal findings on diagnostic imaging of heart and coronary circulation; Z95.818 Presence of other cardiac implants and grafts
CPT/HCPCS: 71275; 82565; Q9967

== ENCOUNTER 2020-05-12 10:06 | Inpatient (IN) | payer MEDICARE, MEDICAID ==
[2020-05-12] MEDS ORDERED: Heparin 1,000 UNITS/ML VIAL ONE (10:42)
[2020-05-12 11:05] LABS: #Eosinphils 0.1 thou/uL (0.0-0.7); #Monocytes 0.4 thou/uL (0.11-0.59); #Neutrophils 2.6 thou/uL (1.40-6.50); %Basophils 1.1 % (0.0-1.0); %Eosinophils 1.7 % (0.0-10.0); %Lymphocytes 24.1 % (21.0-51.0); %Monocytes 8.7 % (0.0-10.0); %Neutrophils 64.4 % (42.0-75.0); Hemoglobin 9.7 g/dL (12.0-16.0); Mean Corpuscular HGB CONC 34.6 g/dL (32.0-36.0); Mean Corpuscular Hemoglobin 32.9 pg (27.0-31.0); Mean Corpuscular Volume 95.1 fL (78.0-98.0); Mean Platelet Volume 8.7 fL (7.4-10.4); Platelet Count 203 thou/uL (130-400); RBC Distribution Width 12.3 % (11.5-14.5); Red Blood Cell (RBC) Count 2.95 mill/uL (4.20-5.40)
[2020-05-12] MEDS ORDERED: Ondansetron PF 4 MG/2 ML Vial ONE (11:13)
[2020-05-12 11:29] LABS: ALT (SGPT) 10 U/L (8-55); AST (SGOT) 12 U/L (5-34); Albumin 3.6 g/dL (3.4-4.8); Alkaline Phosphatase 87 U/L (40-110); Anion Gap 12 mmol/L (10-20); BUN (Urea Nitrogen) 16 mg/dL (9.8-20.1); Bilirubin, Total 0.4 mg/dL (0.2-1.2); Calc. Creatinine Clearance 0 mL/min (70-130); Calcium 8.5 mg/dL (7.8-10.44); Carbon Dioxide 29 mmol/L (23-31); Chloride 106 mmol/L (98-107); Globulin 2.3 g/dL (2.4-3.5); Glucose 149 mg/dL (80-115); Potassium 4.2 mmol/L (3.5-5.1); Protein, Total 5.9 g/dL (6.0-8.3); Sodium 143 mmol/L (136-145)
[2020-05-12 11:57] LABS: INR-International Normal Ratio 1.1; PTT 23.9 sec (22.9-36.1); Prothrombin Time 14.7 sec (12.0-14.7)
--- NOTE | 2020-05-12 13:30 | PDOC.HHP ---
Hospitalist HPI - History of Present Illness GI bleed History of Present Illness: Ms. Dutta is a 65-year-old female with past medical history of atrial fibrillation status post watchman no longer on anticoagulation, diverticulosis, GERD, hypertension, anxiety, multiple GI bleeds with negative colonoscopies who presents for GI bleeding. Patient reports that yesterday she started to have a significant amount of bright red blood in her stools and has had 8 sequential episodes overnight. She discussed this with her GI doctor who advised she come to the emergency room. Patient has had additional 3 episodes of bright red blood in her bowel movement since arriving to the emergency room. She denies di zziness or lightheadedness, but does endorse feeling overall fatigued and weak. She denies chest pain, shortness of breath, abdominal pain. She denies nausea vomiting or diarrhea. She denies hematemesis or coffee-ground emesis. Initial vital signs 123/55, 78, 98.3, 98% on room air. H/H 9.7/28.1. WBC 4.0. BUN/CR 16/0.66. Sodium 143, potassium 4.2. PT 14.7 INR 1.1. EKG showed junctional rhythm with no atrial fibrillation and ventricular rate of 67. Patient received 2 L of normal saline in the emergency room as well as Zofran. She is admitted to hospital service for further work-up and management. Patient follows with Dr. Foster of cardiology and reports she is only on a baby aspirin for her A. fib after watchman procedure in July. Patient's primary care physician is Dr. Soni. Hospitalist ROS - Review of Systems Constitutional: reports: weakness, malaise. denies: fever, chills, sweats, other Eyes: denies: pain, vision change, conjunctivae inflammation, eyelid inflammation, redness, other ENT: denies: ear pain, ear discharge, nose pain, nose discharge, nose congestion, mouth pain, mouth swelling, throat pain, throat swelling, other Respiratory: denies: cough, dry, shortness of breath, hemoptysis, SOB with excertion, pleuritic pain, sputum, wheezing, other Cardiovascular: denies: chest pain, palpitations, orthopnea, paroxysmal noc. dyspnea, edema, light headedness, other Gastrointestinal: reports: hematochezia. denies: nausea, vomiting, abdominal pain, diarrhea, constipation, melena, other Genitourinary: denies: dysuria, frequency, incontinence, hematuria, retention, other Musculoskeletal: denies: neck pain, shoulder pain, arm pain, back pain, hand pain, leg pain, foot pain, other Skin: denies: rash, lesions, za, bruising, other Neurological: denies: weakness, numbness, incoordination, change in speech, confusion, seizures, other - Medication Medications: Medications include Diltiazem Fluticasone Gabapentin Loratadine Paroxetine Protonix Losartan Hydrochlorothiazide Hospitalist History - Past Medical History Other Medical History: Past medical history includes Hypertension Atrial fibrillation status post watchman on aspirin Diverticulosis GERD Anxiety GI bleeds - Past Surgical History Other Surgical History: Past surgical history includes Gastric sleeve Appendectomy Watchman procedure in July 2019 - Family History Other Family History: Patient denies family history of colon cancer - Social History Smoking Status: Never smoker Alcohol: reports: None Drugs: reports: none Living Situation: With Family Occupation: elementary school band director Activity level: independent ambulation - Exam General Appearance: NAD, awake alert General - other findings: Pale Eye: PERRL, anicteric sclera ENT: normocephalic atraumatic, no oropharyngeal lesions, moist mucosa Neck: supple, symmetric, no JVD, no thyromegaly, no lymphadenopathy, no carotid bruit Heart: RRR, normal peripheral pulses, murmur present. negative: no gallops, no rubs Respiratory: CTAB, no wheezes, no rales, no ronchi, normal chest expansion, no tachypnea, normal percussion Gastrointestinal: soft, non-tender, non-distended, normal bowel sounds, no palpable masses, no hepatomegaly, no splenomegaly, no bruit Extremities: no cyanosis, no clubbing, no edema Skin: normal turgor, no lesions, no rashes Neurological: cranial nerve grossly intact, normal sensation to touch, no weakness, no focal deficits, no new deficit Musculoskeletal: normal tone, normal strength, no muscle wasting Psychiatric: normal affect, normal behavior, A&O x 3 Hospitalist Results - Labs Result Diagrams: 05/12/20 10:49 05/12/20 10:49 Lab results: WBC 4.0 thou/uL (4.8-10.8) L 05/12/20 10:49 Hgb 9.7 g/dL (12.0-16.0) L 05/12/20 10:49 Hct 28.1 % (36.0-47.0) L 05/12/20 10:49 MCV 95.1 fL (78.0-98.0) 05/12/20 10:49 Plt Count 203 thou/uL (130-400) 05/12/20 10:49 Neutrophils % 64.4 % (42.0-75.0) 05/12/20 10:49 Sodium 143 mmol/L (136-145) 05/12/20 10:49 Potassium 4.2 mmol/L (3.5-5.1) 05/12/20 10:49 Chloride 106 mmol/L (98-107) 05/12/20 10:49 Carbon Dioxide 29 mmol/L (23-31) 05/12/20 10:49 BUN 16 mg/dL (9.8-20.1) 05/12/20 10:49 Creatinine 0.66 mg/dL (0.6-1.1) 05/12/20 10:49 Glucose 149 mg/dL (80-115) H 05/12/20 10:49 Calcium 8.5 mg/dL (7.8-10.44) 05/12/20 10:49 Total Bilirubin 0.4 mg/dL (0.2-1.2) 05/12/20 10:49 AST 12 U/L (5-34) 05/12/20 10:49 ALT 10 U/L (8-55) 05/12/20 10:49 Alkaline Phosphatase 87 U/L (40-110) 05/12/20 10:49 Troponin I Less than 0.010 ng/mL (< 0.028) 05/12/20 11:40 Serum Total Protein 5.9 g/dL (6.0-8.3) L 05/12/20 10:49 Albumin 3.6 g/dL (3.4-4.8) 05/12/20 10:49 Hospitalist H&P A/P - Plan Plan: 65-year-old male with possible history of A. fib not on anticoagulation status post watchman, hypertension, GERD, diverticulosis, anxiety, recurrent GI bleeds presents with acute episodes of bright red blood per rectum. GI bleed Patient has been admitted in the past for multiple GI bleeds. Colonoscopies have been negative. Patient follows with Dr. Post as an outpatient. Reports over 8-10 episodes of profuse bright red bloody bowel movements. H&H on admission 9.7/20.1. Patient denies lightheadedness or dizziness, but does endorse generalized weakness. Plan GI consult Trend H&H 2 large-bore IVs Type and cross IV Protonix twice daily Atrial fibrillation History of A. fib patient was formally on Eliquis, however this was stopped due to recurrent GI bleeds. Patient underwent watchman procedure and July 2019. She follows with Dr. Foster of cardiology. Is on a baby aspirin which she has not taken since she started having bloody bowel movements. EKG showed junctional rhythm with no A. fib and a ventricular rate of 67. Plan Telemetry monitoring Continue home diltiazem Hypertension Hold home losartan and hydrochlorothiazide in setting of GI bleed. Anxiety Continue home paroxetine DVT prophylaxiscontraindicated secondary to GI bleed Full code MDM is patient's daughter Case discussed with attending physician, Dr. Medrano.
[2020-05-12] MEDS ORDERED: Ondansetron PF 4 MG/2 ML Vial IVP PRN (13:37)
[2020-05-12] MEDS ORDERED: Acetaminophen 500 MG TAB ONE (13:50)
[2020-05-12 15:05] LABS: #Lymphocytes 0.7 thou/uL (1.20-3.40); #Monocytes 0.2 thou/uL (0.11-0.59); #Neutrophils 3.9 thou/uL (1.40-6.50); %Basophils 0.2 % (0.0-1.0); %Eosinophils 0.3 % (0.0-10.0); %Lymphocytes 15.3 % (21.0-51.0); %Monocytes 4.6 % (0.0-10.0); %Neutrophils 79.7 % (42.0-75.0); Hemoglobin 7.7 g/dL (12.0-16.0); Mean Corpuscular HGB CONC 33.5 g/dL (32.0-36.0); Mean Corpuscular Hemoglobin 31.8 pg (27.0-31.0); Mean Platelet Volume 8.6 fL (7.4-10.4); Platelet Count 162 thou/uL (130-400); RBC Distribution Width 12.4 % (11.5-14.5); Red Blood Cell (RBC) Count 2.43 mill/uL (4.20-5.40); White Blood Cell (WBC) Count 4.8 thou/uL (4.8-10.8)
[2020-05-12 15:46] VITALS: BMI 34.0
[2020-05-12] MEDS ORDERED: GoLYTELY 4,000 ml Bottle PO SCH (17:00)
[2020-05-12] MEDS: Sodium Chloride 0.9% 1,000 ML IV SCH (17:41)
--- NOTE | 2020-05-12 18:26 | CON ---
DATE OF CONSULTATION: 05/12/2020 CONSULTING PROVIDER: Jones Montejo MD REASON FOR CONSULTATION: Hematochezia. HISTORY OF PRESENT ILLNESS: The patient is a 65-year-old female with past medical history of GERD, atrial fibrillation, congestive heart failure, hypertension, hyperlipidemia, anxiety, obstructive sleep apnea, and prior history of occult GI bleeding, presenting with complaints of hematochezia. She states that she was in her usual state of health until yesterday evening when she began having increased abdominal discomfort as well as the sensation to have a bowel movement, which she had a bowel movement at approximately 5 o'clock yesterday evening. It was grossly red blood mixed with stool. Over the course of the next 12 to 16 hours, the patient had an additional 8 bloody bowel movements with the majority of them being grossly bloody without any stool involvement at all. With the recurrent bleeding that she was experiencing and with her history of recurrent occult GI bleeding in the past, (has had multiple occasions of hematochezia with unknown origin). She contacted my office for further guidance. After speaking with her on the phone briefly, I advised her to come to the ER for further evaluation. While in the ER, she had an additional 2 grossly bloody bowel movements, but has maintained her heart rate and blood pressure in more normal range. Currently, she states that she is only having abdominal discomfort/"upset stomach" in addition to the sensation to have a bowel movement, which have been mostly bloody again over the last 16 to 18 hours. Otherwise, she does endorse some associated dizziness, headache, and mild nausea without vomiting. Currently, she denies any fevers, chills, hematemesis, melena, dysphagia, odynophagia, constipation, or weight loss. Of note, the patient does endorse a history of chronic diarrhea that has been present for decades where she would have approximately 3 to 4 semi-solid bowel movements per day ([place] 5) with no difficulty with defecation. Of note, the patient has had multiple episodes of occult GI bleeding with the most recent being in July 2019 where she was admitted to the hospital with complaints of hematochezia with more conservative management (no endoscopy). Her bleeding stopped spontaneously and she was ultimately discharged to the outpatient study for followup. She subsequently underwent a colonoscopy in October 2019, which showed the presence of numerous diverticula throughout the colon in addition to 2 polyps that were removed with snare cautery polypectomy. REVIEW OF SYSTEMS: A 10-category review of systems was obtained with all responses negative except for the pertinent positives as listed in HPI. PAST MEDICAL HISTORY: As per HPI. PAST SURGICAL HISTORY: Gastric sleeve surgery, , appendectomy, and Watchman procedure in July 2019. FAMILY HISTORY: Denies any GI malignancies. SOCIAL HISTORY: Denies any tobacco, alcohol, or illicit drug use. OUTPATIENT MEDICATIONS: Reviewed. ALLERGIES: NO KNOWN DRUG ALLERGIES. PHYSICAL EXAMINATION: VITAL SIGNS: Temperature 98.3, pulse 87, blood pressure 115/69, respiratory rate 16, saturating 98% on room air. GENERAL: The patient was lying in bed, in no acute distress. Alert and oriented x4. HEENT: Normocephalic, atraumatic. NECK: Supple. No JVD or scleral icterus noted. CARDIOVASCULAR: Regular rate and rhythm with no discernible gallops or rubs. A 3 to 4/6 systolic murmur was best heard at the left lower sternal border in the mid axillary line. RESPIRATORY: Clear to auscultation bilaterally with no discernible wheezes or rales. ABDOMEN: Normoactive bowel sounds. Soft, nontender, nondistended. EXTREMITIES: No cyanosis, clubbing, or edema. LABORATORY DATA: CBC with a white blood cell count of 4, hemoglobin 9.7, hematocrit 28.1, platelets 203. INR 1.1. Chemistry with a sodium of 143, potassium 4.2, chloride 106, CO2 of 29, BUN 16, creatinine 0.66, glucose 149, AST 12, ALT 10, alkaline phosphatase 87, total bilirubin 0.4, albumin 3.6. IMAGING DATA: No current GI imaging is available for review. ASSESSMENT AND PLAN: The patient is a 65-year-old female with past medical history of gastroesophageal reflux disease, atrial fibrillation, congestive heart failure, hypertension, hyperlipidemia, obstructive sleep apnea, anxiety, and diverticulosis presenting with acute onset of worsening bloody bowel movements consistent with a diverticular bleed. Hematochezia. The patient is presenting with a longstanding history of recurrent episodes of gastrointestinal bleeding characterized as hematochezia, but with no discernible origin was stated thus far. During her most recent hospitalization in July 2019, her bleeding stopped spontaneously without any intervention at that time also consistent with a diverticular bleed. However, now the patient is having acute onset of grossly bloody bowel movement with a drop in her H and H, but no significant derangements in her heart rate or blood pressure. At this time, the differential could include diverticular bleeding, arteriovenous malformation, Dieulafoy lesion, and/or gastrointestinal neoplasm (much less likely given the colonoscopy in October of this year). RECOMMENDATIONS: 1. Would continue to trend her H and H and transfuse as necessary to maintain an H and H of 7/21. 2. Continue to monitor clinically for signs of active GI bleeding. 3. Would avoid any anticoagulation in this patient given active bleeding at this time. 4. Please make the patient n.p.o. at midnight except for medications with sips of water in anticipation of the colonoscopy tomorrow. 5. Would place the patient on a clear liquid diet today with plans for GoLYTELY prep tonight and colonoscopy in the morning. Further recommendations to follow colonoscopy. We will continue to follow. Please call with any questions. Job ID: [id number]
[2020-05-12 18:42] LABS: #Lymphocytes 1.1 thou/uL (1.20-3.40); #Monocytes 0.3 thou/uL (0.11-0.59); #Neutrophils 3.1 thou/uL (1.40-6.50); %Basophils 0.9 % (0.0-1.0); %Eosinophils 0.5 % (0.0-10.0); %Lymphocytes 24.9 % (21.0-51.0); %Monocytes 6.3 % (0.0-10.0); %Neutrophils 67.4 % (42.0-75.0); Hemoglobin 7.6 g/dL (12.0-16.0); Mean Corpuscular HGB CONC 33.5 g/dL (32.0-36.0); Mean Corpuscular Hemoglobin 31.7 pg (27.0-31.0); Mean Corpuscular Volume 94.7 fL (78.0-98.0); Mean Platelet Volume 8.7 fL (7.4-10.4); Platelet Count 177 thou/uL (130-400); RBC Distribution Width 12.3 % (11.5-14.5); Red Blood Cell (RBC) Count 2.41 mill/uL (4.20-5.40); White Blood Cell (WBC) Count 4.6 thou/uL (4.8-10.8)
[2020-05-12] MEDS: Pantoprazole 40 MG VIAL IVP SCH (20:13)
[2020-05-13 00:01] LABS: #Eosinphils 0.1 thou/uL (0.0-0.7); #Lymphocytes 1.3 thou/uL (1.20-3.40); #Monocytes 0.4 thou/uL (0.11-0.59); #Neutrophils 2.6 thou/uL (1.40-6.50); %Basophils 0.6 % (0.0-1.0); %Eosinophils 1.4 % (0.0-10.0); %Monocytes 9.3 % (0.0-10.0); %Neutrophils 58.6 % (42.0-75.0); Hemoglobin 6.8 g/dL (12.0-16.0); Mean Corpuscular HGB CONC 34.4 g/dL (32.0-36.0); Mean Corpuscular Hemoglobin 32.4 pg (27.0-31.0); Mean Corpuscular Volume 94.4 fL (78.0-98.0); Mean Platelet Volume 8.6 fL (7.4-10.4); Platelet Count 151 thou/uL (130-400); RBC Distribution Width 12.3 % (11.5-14.5); Red Blood Cell (RBC) Count 2.08 mill/uL (4.20-5.40); White Blood Cell (WBC) Count 4.4 thou/uL (4.8-10.8)
[2020-05-13] MEDS: Sodium Chloride 0.9% 1,000 ML IV SCH ×3 (03:13→17:26)
[2020-05-13 05:52] LABS: Band 2 % (5-11); Eosinophils 1 % (0-10); Hemoglobin 7.1 g/dL (12.0-16.0); Lymphocytes 18 % (21-51); MDiff Complete? YES; Mean Corpuscular HGB CONC 34.5 g/dL (32.0-36.0); Mean Corpuscular Hemoglobin 32.1 pg (27.0-31.0); Mean Corpuscular Volume 93.2 fL (78.0-98.0); Mean Platelet Volume 9.1 fL (7.4-10.4); Metamyelocyte 1 % (0-0); Monocytes 3 % (0-10); Neutrophil 75 % (42-75); Platelet Count 142 thou/uL (130-400); Platelet Morphology Comment Appears Adequate; RBC Distribution Width 12.1 % (11.5-14.5); Red Blood Cell (RBC) Count 2.22 mill/uL (4.20-5.40); White Blood Cell (WBC) Count 4.6 thou/uL (4.8-10.8)
[2020-05-13 06:01] LABS: Anion Gap 13 mmol/L (10-20); BUN (Urea Nitrogen) 10 mg/dL (9.8-20.1); Calc. Creatinine Clearance 141 mL/min (70-130); Calcium 7.1 mg/dL (7.8-10.44); Carbon Dioxide 24 mmol/L (23-31); Chloride 110 mmol/L (98-107); Glucose 136 mg/dL (80-115); Potassium 3.9 mmol/L (3.5-5.1); Sodium 143 mmol/L (136-145)
[2020-05-13] MEDS: Pantoprazole 40 MG VIAL IVP SCH ×2 (09:31→21:16)
--- NOTE | 2020-05-13 10:35 | PDOC.HOSPP ---
- Subjective Encounter Date: 05/13/20 Encounter Time: 10:35 Subjective: Overnight, patient received two units packed RBCs. Plan for colo this am. Still having additional bloody BM overnight. No new complaints. Patient resting comfortably in bed. Chart and medications reviewed. - Objective Vital Signs & Weight: Vital Signs (12 hours) Temp Pulse Pulse Resp BP Pulse Ox 05/13/20 09:37 94 05/13/20 07:13 94 16 109/73 98 05/13/20 05:42 98.3 F 86 16 97/66 97 05/13/20 03:03 98.3 F 89 16 103/67 97 05/13/20 01:27 98.1 F 85 16 98/66 96 05/13/20 01:20 98.3 F 90 20 111/65 98 05/12/20 23:58 98.2 F 76 16 103/69 97 05/12/20 22:57 98.3 F 98 16 125/79 97 Weight Weight 186 lb I&O: 05/12/20 05/13/20 05/14/20 06:59 06:59 06:59 Intake Total 5510 Output Total 200 Balance 5310 Result Diagrams: 05/13/20 04:58 05/13/20 04:58 Hospitalist ROS - Review of Systems Constitutional: denies: fever, chills, sweats, weakness, malaise, other Eyes: denies: vision change Respiratory: denies: shortness of breath Cardiovascular: denies: chest pain, palpitations, light headedness Gastrointestinal: reports: hematochezia. denies: nausea, vomiting, abdominal pain, diarrhea, constipation, melena Genitourinary: denies: dysuria Musculoskeletal: denies: neck pain, shoulder pain, arm pain, back pain, hand pain, leg pain, foot pain, other Skin: denies: rash, lesions, za, bruising, other Neurological: denies: weakness, numbness, incoordination, change in speech, confusion, seizures, other - Medication Medications: Active Medications Generic Name Dose Route Start Last Admin Trade Name Freq PRN Reason Stop Dose Admin Diltiazem HCl 240 mg 05/13/20 09:00 05/13/20 09:37 Diltiazem Hcl Cd 240 Mg Capsule PO Not Given DAILY KEN Sodium Chloride 1,000 mls @ 100 mls/hr 05/12/20 13:45 05/13/20 09:36 Normal Saline 0.9% IV Not Given .Q10H KEN Pantoprazole Sodium 40 mg 05/12/20 21:00 05/13/20 09:31 Pantoprazole 40 Mg Vial IVP 40 mg Q12HR KEN Administration - Exam General Appearance: NAD, awake alert Eye: PERRL, anicteric sclera ENT: normocephalic atraumatic, no oropharyngeal lesions, moist mucosa Neck: supple Heart: RRR, no murmur, no gallops, no rubs, normal peripheral pulses Respiratory: CTAB, no wheezes, no rales, no ronchi, normal chest expansion, no tachypnea, normal percussion Gastrointestinal: soft, non-tender, non-distended, normal bowel sounds, no palpable masses, no hepatomegaly, no splenomegaly, no bruit Extremities: no cyanosis, no clubbing, no edema Skin: normal turgor, no lesions, no rashes Neurological: cranial nerve grossly intact, normal sensation to touch, no weakness, no focal deficits, no new deficit Musculoskeletal: normal tone, normal strength, no muscle wasting Psychiatric: normal affect, normal behavior, A&O x 3 Hosp A/P - Plan Plan: 65-year-old female with possible history of A. fib not on anticoagulation status post watchman, hypertension, GERD, diverticulosis, anxiety, recurrent GI bleeds presents with acute episodes of bright red blood per rectum. GI bleed Patient has been admitted in the past for multiple GI bleeds. Colonoscopies have been negative. Patient follows with Dr. Post as an outpatient. Reports over 8-10 episodes of profuse bright red bloody bowel movements. H&H on admission 9.7/20.1. Down trending to 6.8. Patient s/p 2 units of pRBCs. Plans for colonoscopy today Plan GI with plans for colo today Trend H&H 2 large-bore IVs S/p 2 units of pRBCs -Will transfuse one more unit has am Hg 7.1 still with active bleed IV Protonix twice daily Atrial fibrillation History of A. fib patient was formally on Eliquis, however this was stopped due to recurrent GI bleeds. Patient underwent watchman procedure and July 2019. She follows with Dr. Foster of cardiology. Is on a baby aspirin which she has not taken since she started having bloody bowel movements. EKG showed junctional rhythm with no A. fib and a ventricular rate of 67. Plan Telemetry monitoring Continue home diltiazem Hypertension Hold home losartan and hydrochlorothiazide in setting of GI bleed. Anxiety Continue home paroxetine DVT prophylaxiscontraindicated secondary to GI bleed Full code MDM is patient's daughter Case discussed with attending physician, Dr. Medrano.
[2020-05-13 10:59] LABS: SARS-CoV-2 NAA Rapid Test Not Detected (NotDetected)
[2020-05-13] MEDS ORDERED: PROPOFOL 200 MG/20 ML VIAL ONE (11:44)
[2020-05-13] MEDS ORDERED: Lidocaine 1% PF 5 ML VIAL ONE (11:44)
[2020-05-13] MEDS ORDERED: diphenhydrAMINE 50 MG/ML VIAL ONE (11:44)
[2020-05-13] MEDS ORDERED: Ondansetron PF 4 MG/2 ML Vial ONE (11:44)
[2020-05-13] MEDS ORDERED: Fentanyl 100 MCG/2 ML VIAL ONE ×2 (13:31→21:49)
[2020-05-13] MEDS ORDERED: Ondansetron HCl/PF 4 MG/2 ML Vial IVP PRN (14:42)
[2020-05-13] MEDS ORDERED: Promethazine HCl 25 MG/ML VIAL SLOW IVP PRN (14:42)
[2020-05-13] MEDS ORDERED: Promethazine HCl 25 MG/ML VIAL IM PRN (14:42)
--- NOTE | 2020-05-13 15:13 | OP ---
DATE OF PROCEDURE: 05/13/2020 PROCEDURE PERFORMED: Colonoscopy (diagnostic). INDICATIONS FOR PROCEDURE: Hematochezia, acute hemorrhagic anemia. DESCRIPTION OF PROCEDURE: After the risks and benefits of the procedure were explained to the patient including risks of bleeding, infection, perforation, reactions to anesthesia, aspiration, and/or pain, informed consent was obtained. The patient was then taken to the endoscopy suite where she was maneuvered into the left lateral decubitus position followed by introduction of deep sedation via propofol and anesthesia support. Once the patient was adequately sedated, a digital rectal examination was performed followed by introduction of the standard colonoscope, which was then advanced to the terminal ileum with mild difficulty due to significant looping, diverticular disease, and tortuosity of the colon. The quality of the prep was poor with a large amount of retained blood seen throughout the entire colon, limiting visualization of the colonic mucosa. Hearne through the procedure, the patient did exhibit acute oxygen desaturation, requiring removal of the colonoscope for further evaluation. The patient was ultimately intubated for oxygenation/airway protection and the procedure was then resumed. The patient then tolerated the procedure well with no other immediate perioperative complications. On conclusion of the procedure, all equipment was removed from the patient. She was extubated and transferred to PACU in satisfactory condition. FINDINGS: Digital rectal exam: Normal findings were seen on external examination with no masses palpated and normal sphincter tone. Colon findings: Normal-appearing mucosa was seen in the terminal ileum with only a minimal amount of blood at the opening to the ileocecal valve. On further intubation of the terminal ileum, there was no blood seen. However, upon entry back into the colon, a significant/large amount of retained blood was seen throughout the entire colon, significantly limiting visualization. Copious irrigation was then employed with aggressive irrigation and suctioning, which still yielded a fair prep with the prep adequate for the evaluation of lesions larger than 10 to 15 mm in size. Of the mucosa seen, normal-appearing mucosa was seen at the ileocecal valve and appendiceal orifice within the cecum itself. A large amount of retained blood clot was seen in the cecum and proximal ascending colon, but with removal of this blood clot, did not yield any other underlying abnormalities. With the aggressive irrigation and suctioning, removal of as much blood and blood clot as I could. Normal-appearing mucosa was seen in the ascending colon with scattered diverticula in this region, they were small and large in diameter. Aggressive/meticulous inspection of these diverticula did not yield any bleeding. Other than the retained blood, normal-appearing mucosa was then seen in the transverse and proximal descending colons. Again, more scattered diverticula were seen in the descending with a greater density of these diverticula in the distal descending and sigmoid colons. Again, meticulous inspection was made of all seen diverticula with no etiology for the patient's hematochezia seen during this inspection. Normal-appearing mucosa was then seen in the rectum with no abnormality seen on rectal retroflexion. IMPRESSION: 1. A large amount of retained blood and blood clot seen throughout the entire colon, significantly limiting visualization despite copious amounts of irrigation and suctioning. 2. Of the mucosa seen, severe pancolonic diverticulosis was visualized in the ascending, descending, and sigmoid colons. Careful inspection of these diverticula did not yield a source of bleeding. 3. No etiology for the patient's anemia/bleeding was seen during this examination. RECOMMENDATIONS: 1. Would continue to trend the patient's hemoglobin and hematocrit and transfuse as necessary to maintain the hemoglobin and hematocrit of 7/21. 2. Continue monitor clinically for signs of active GI bleeding. 3. If the patient continues to have hematochezia, would consider CT angiography as a modality for identification of GI bleed and possible embolization at that time. 4. Would avoid any anticoagulation in light of recent GI bleeding. 5. Would place the patient on a clear liquid diet and advance only if the bleeding has stopped. 6. No antibiotics are indicated at this time. We will continue to follow. Please call with any questions. Job ID: [id number]
[2020-05-13 16:12] LABS: #Eosinphils 0.1 thou/uL (0.0-0.7); #Lymphocytes 0.7 thou/uL (1.20-3.40); #Monocytes 0.4 thou/uL (0.11-0.59); #Neutrophils 8.5 thou/uL (1.40-6.50); %Basophils 0.3 % (0.0-1.0); %Eosinophils 1.3 % (0.0-10.0); %Lymphocytes 7.3 % (21.0-51.0); %Monocytes 4.5 % (0.0-10.0); %Neutrophils 86.6 % (42.0-75.0); Hemoglobin 8.1 g/dL (12.0-16.0); Mean Corpuscular HGB CONC 34.6 g/dL (32.0-36.0); Mean Corpuscular Hemoglobin 32.3 pg (27.0-31.0); Mean Corpuscular Volume 93.2 fL (78.0-98.0); Mean Platelet Volume 8.7 fL (7.4-10.4); Platelet Count 148 thou/uL (130-400); RBC Distribution Width 12.6 % (11.5-14.5); White Blood Cell (WBC) Count 9.8 thou/uL (4.8-10.8)
[2020-05-13 18:54] LABS: Hemoglobin 6.7 g/dL (12.0-16.0); Mean Corpuscular HGB CONC 34.9 g/dL (32.0-36.0); Mean Corpuscular Hemoglobin 32.7 pg (27.0-31.0); Mean Corpuscular Volume 93.6 fL (78.0-98.0); Mean Platelet Volume 8.6 fL (7.4-10.4); Platelet Count 140 thou/uL (130-400); RBC Distribution Width 12.7 % (11.5-14.5); Red Blood Cell (RBC) Count 2.05 mill/uL (4.20-5.40); White Blood Cell (WBC) Count 9.9 thou/uL (4.8-10.8)
--- NOTE | 2020-05-13 20:31 | PDOC.EVN ---
Event Note - Event Note Event Note: Nursing called, critical Hemoglobin 6.7. Patient VSS. Patient reports general malaise/weakness. Reviewed history, received 3 units PRBCs Hgb 7.7 up to 8.1, GI scoped, unable to locate source. Orders to transfuse 1 PRBC Hgb < 7. Prepared 3 units standby, trend H/H Q4 hours. Instruct nursing to call GI. Dr. Jimenez wants to get CTA with possible embolization, he spoke to Dr. Pearson who agreed to perform CT angiography with possible embolization.
[2020-05-13] MEDS ORDERED: Midazolam HCl 2 mg/2 ml Vial ONE (21:49)
[2020-05-14] MEDS: Sodium Chloride 0.9% 1,000 ML IV SCH ×2 (01:58→18:36)
[2020-05-14 05:28] LABS: Anion Gap 14 mmol/L (10-20); BUN (Urea Nitrogen) 7 mg/dL (9.8-20.1); Calc. Creatinine Clearance 149 mL/min (70-130); Carbon Dioxide 20 mmol/L (23-31); Chloride 110 mmol/L (98-107); Glucose 105 mg/dL (80-115); Potassium 3.5 mmol/L (3.5-5.1); Sodium 140 mmol/L (136-145)
[2020-05-14 05:35] LABS: Band 4 % (5-11); Hemoglobin 7.9 g/dL (12.0-16.0); Hypochromia SLIGHT = 6-15 cells (100X) (0-5/hpf); Lymphocytes 12 % (21-51); MDiff Complete? YES; Mean Corpuscular HGB CONC 34.2 g/dL (32.0-36.0); Mean Corpuscular Hemoglobin 31.7 pg (27.0-31.0); Mean Corpuscular Volume 92.4 fL (78.0-98.0); Mean Platelet Volume 8.5 fL (7.4-10.4); Monocytes 13 % (0-10); Neutrophil 71 % (42-75); Platelet Count 110 thou/uL (130-400); Platelet Morphology Comment Appears Decreased; RBC Distribution Width 12.7 % (11.5-14.5); White Blood Cell (WBC) Count 6.5 thou/uL (4.8-10.8)
--- NOTE | 2020-05-14 06:39 | OP ---
DATE OF PROCEDURE: 05/13/2020 PREOPERATIVE DIAGNOSIS: Lower gastrointestinal bleed. POSTOPERATIVE DIAGNOSIS: Site unknown. PROCEDURE: Abdominal aortography, selective superior mesenteric artery angiography and attempted, but unsuccessful inferior mesenteric angiography. ANESTHESIA: Lidocaine with IV sedation. CONTRAST: 76 mL. FLUOROSCOPY: Time 23.4 minutes. DESCRIPTION OF PROCEDURE: After adequate anesthesia had been obtained with local anesthetic in the groin, ultrasound-guided puncture of the right common femoral artery was performed. A 5-Romansh dilator and sheath were placed over the wire. Following which, the Contra catheter was used to perform AP and lateral angiography. Superior mesenteric artery was selected with an [facility] catheter, Bentson wire, then Glidewire and then angled glide catheter were inserted into the superior mesenteric artery and multiple injections obtained and no contrast pooling or extravasation was identified. Following this, contrast angiography of the infrarenal aorta was obtained and the inferior mesenteric artery was identified on the AP projection and there was no bleeding from it. However, it could not be selectively cannulated despite multiple attempts. The sheath was removed from the groin and the patient is to be taken back to her room. Job ID: [id number]
[2020-05-14] MEDS: Pantoprazole 40 MG VIAL IVP SCH ×2 (09:13→20:43)
[2020-05-14 09:16] LABS: Hemoglobin 8.3 g/dL (12.0-16.0)
--- NOTE | 2020-05-14 10:29 | PRG ---
DATE OF SERVICE: 05/14/2020 REASON FOR CONSULTATION: Hematochezia. SUBJECTIVE: The patient underwent colonoscopy yesterday with a significant amount of bright red blood seen throughout the entire colon. However, no bleeding source was easily identified. Later that evening, the patient continued to have bright red bloody bowel movements in addition to a drop in her hemoglobin and hematocrit that then prompted CT angiography, that was also negative for overt bleeding during that procedure. Today, however, the patient states that she is doing well. She adds that she has not had any further bloody bowel movements since early this morning and that her abdominal discomfort whenever the bleeding was occurring has now completely resolved. Currently, she denies any nausea, vomiting, fevers, chills, hematemesis, melena, or abdominal pain. OBJECTIVE: VITAL SIGNS: Temperature 98.4, pulse 76, blood pressure 105/68, respiratory rate 16, saturating 96% on room air. GENERAL: The patient was lying in bed, in no acute distress. Alert and oriented x4. CARDIOVASCULAR: Regular rate and rhythm. RESPIRATORY: Clear to auscultation bilaterally. ABDOMEN: Normoactive bowel sounds. Soft, nontender, nondistended. EXTREMITIES: No cyanosis, clubbing, or edema. LABORATORY DATA: CBC with a white blood cell count of 6.5, hemoglobin 7.9, hematocrit 23.1, platelets 110. Chemistry with a sodium of 140, potassium 3.5, chloride 110, CO2 of 20, BUN 7, creatinine 0.5, glucose 105. IMAGING DATA: The patient underwent colonoscopy on May 13, 2020, with a large amount of retained bright red blood seen throughout the entire colon in addition to pancolonic diverticulosis. However, no bleeding source was identified during that particular procedure with no evidence of active or oozing blood visualized. CT angiography was also performed on May 13, 2020, with selective cannulation of the superior mesenteric artery with no bleeding identified within that vessel system. Contrast was seen going into the inferior mesenteric artery, but it was not selectively cannulated for better delineation/determination. ASSESSMENT AND PLAN: The patient is a 65-year-old female with past medical history of gastroesophageal reflux disease, atrial fibrillation, congestive heart failure, hypertension, hyperlipidemia, obstructive sleep apnea, anxiety, and diverticulosis, presenting with significant hematochezia. Hematochezia: The patient is presenting with a longstanding history of recurrent episodes of gastrointestinal bleeding, characterized as hematochezia with workup in the past negative thus far. On admission, the patient was having multiple grossly bloody bowel movements consistent with an overt gastrointestinal bleed. She subsequently underwent colonoscopy on May 13, 2020, with no discernible etiology for her bleeding seen. However, the colon was filled with a large amount of bright red blood. CT angiography was performed, given the fact that the patient was continuing to bleed and again it failed to identify a source of bleeding. However, at this time, the patient has stopped having bloody bowel movements in addition to resolution of her abdominal pain, which can possibly indicate that her bleeding has subsequently stopped. Her hemoglobin and hematocrit are currently up trending, but she did receive blood yesterday and may not have had enough time to equilibrate to the new total body volume. At this time, the origin of her bleeding is likely either diverticular or arteriovenous malformation/[place]ul[place] in origin, but again, not easily identified thus far. RECOMMENDATIONS: 1. We would continue to trend her hemoglobin and hematocrit and transfuse as necessary to maintain hemoglobin and hematocrit of 7/21. 2. Continue to monitor clinically for signs of active gastrointestinal bleeding. 3. We would proceed with a tagged red cell scan today in attempt to further localize the site of gastrointestinal bleeding. If negative, then I would only continue to trend her hemoglobin and hematocrit, and monitor for bleeding. 4. If the patient continues to have overt bleeding despite a negative tagged red cell scan, I would consider repeat colonoscopy, and if an origin is still not able to be determined, we will then consult General Surgery for colectomy. 5. We would continue the patient on clear liquids at least for the time being except for n.p.o. status related to procedures. We will continue to follow. Please call with any questions. Job ID: [id number]
--- NOTE | 2020-05-14 11:17 | PDOC.HOSPP ---
- Subjective Encounter Date: 05/14/20 Encounter Time: 10:00 Subjective: Patient seen for follow-up for GI bleed. She notes no further bleeding at this time, however has not had a bowel movement since precolonoscopy. Has been eating some ice chips and states her stomach has been very active since that time. Patient being taken down for another test with GI currently. No complaints other than a headache last night which she is requesting Tylenol for. - Objective Vital Signs & Weight: Vital Signs (12 hours) Temp Pulse Pulse Resp BP BP Pulse Ox 05/14/20 09:13 76 105/68 05/14/20 08:00 96 05/14/20 07:22 98.4 F 76 16 105/68 96 05/14/20 07:00 98.4 F 05/14/20 05:21 99 05/14/20 04:15 97.8 F 80 14 98/53 L 100 05/14/20 03:38 98.4 F 85 16 98/65 98 05/14/20 02:45 97.8 F 83 12 129/79 100 05/13/20 23:32 98.7 F 90 20 115/70 99 Weight Weight 186 lb I&O: 05/13/20 05/14/20 05/15/20 06:59 06:59 06:59 Intake Total 5510 4440 Output Total 200 Balance 5310 4440 Result Diagrams: 05/14/20 08:44 05/14/20 04:41 Hospitalist ROS - Review of Systems Constitutional: reports: other (Headache) All other systems reviewed; all pertinent +/- noted in HPI/Subj - Medication Medications: Active Medications Generic Name Dose Route Start Last Admin Trade Name Alvin PRN Reason Stop Dose Admin Diltiazem HCl 240 mg 05/13/20 09:00 05/14/20 09:13 Diltiazem Hcl Cd 240 Mg Capsule PO Not Given DAILY KEN Sodium Chloride 1,000 mls @ 100 mls/hr 05/12/20 13:45 05/14/20 01:58 Normal Saline 0.9% IV 1,000 mls .Q10H KEN Administration Pantoprazole Sodium 40 mg 05/12/20 21:00 05/14/20 09:13 Pantoprazole 40 Mg Vial IVP 40 mg Q12HR KEN Administration - Exam General Appearance: NAD, awake alert Eye: PERRL ENT: normocephalic atraumatic Neck: supple, symmetric Heart: RRR, no gallops, no rubs, normal peripheral pulses, murmur present Respiratory: CTAB, no wheezes, no rales, no ronchi, normal chest expansion Gastrointestinal: soft, non-tender, non-distended Gastrointestinal - other findings: Hyperactive bowel sounds Extremities: no edema Neurological: no focal deficits Hosp A/P - Plan GI bleed GI with plans for additional nuc med testing today Trend H&H 2 large-bore IVs S/p 5 units of pRBCs -Last transfusion was last night, no additional bleeding since then IV Protonix twice daily Advance diet once cleared by GI Atrial fibrillation Continue home diltiazem Hypertension Continue to hold home losartan and hydrochlorothiazide in setting of GI bleed. Anxiety Continue home paroxetine
[2020-05-14] MEDS ORDERED: Acetaminophen 500 MG TAB PO PRN (11:21)
--- NOTE | 2020-05-14 13:37 | NM ---
Radionucleotide GI bleeding study HISTORY: Hematochezia. FINDINGS: Early images show physiologic uptake within the vascular system and abdominal viscera. Grad ual uptake within the urinary collecting system. Imaging extended to 91 minutes shows no unexpected areas of radiotracer uptake within the bowel. IMPRESSION : No evidence of ongoing enteric hemorrhage.
[2020-05-14 17:17] LABS: Hemoglobin 7.4 g/dL (12.0-16.0)
[2020-05-14 22:26] LABS: Hemoglobin 7.1 g/dL (12.0-16.0)
[2020-05-15 06:41] LABS: Anion Gap 7 mmol/L (10-20); BUN (Urea Nitrogen) 6 mg/dL (9.8-20.1); Calc. Creatinine Clearance 162 mL/min (70-130); Calcium 7.2 mg/dL (7.8-10.44); Carbon Dioxide 28 mmol/L (23-31); Chloride 109 mmol/L (98-107); Glucose 93 mg/dL (80-115); Potassium 3.1 mmol/L (3.5-5.1); Sodium 141 mmol/L (136-145)
[2020-05-15 07:32] LABS: Hemoglobin 7.3 g/dL (12.0-16.0); Mean Corpuscular Hemoglobin 32.6 pg (27.0-31.0); Mean Corpuscular Volume 93.1 fL (78.0-98.0); Mean Platelet Volume 8.2 fL (7.4-10.4); Platelet Count 112 thou/uL (130-400); Red Blood Cell (RBC) Count 2.24 mill/uL (4.20-5.40); White Blood Cell (WBC) Count 3.4 thou/uL (4.8-10.8)
[2020-05-15] MEDS ORDERED: Potassium Chloride 20 MEQ TAB PO SCH (07:45)
[2020-05-15 09:02] LABS: Eosinophils 1 % (0-10); Lymphocytes 19 % (21-51); MDiff Complete? YES; Monocytes 1 % (0-10); Neutrophil 70 % (42-75); Platelet Morphology Comment Appears Decreased; Reactive Lymphocytes 9 % (0-10)
[2020-05-15] MEDS: Pantoprazole 40 MG VIAL IVP SCH ×2 (09:49→20:05)
[2020-05-15 17:13] LABS: Hemoglobin 8.5 g/dL (12.0-16.0)
--- NOTE | 2020-05-15 18:26 | PDOC.HOSPP ---
- Subjective Encounter Date: 05/15/20 Encounter Time: 16:00 Subjective: Patient seen for follow-up for GI bleed. It was reported that she had a small bowel movement with blood last night but upon entry to room patient had larger passing of blood. In her hat in the bathroom there was approximately 100 to 200 mL of niraj blood and clots. Patient states that the only difference between yesterday and today was that she had some caffeine today. Daughter states that she appears more pale than earlier. Patient with no other complaints at this time. - Objective Vital Signs & Weight: Vital Signs (12 hours) Temp Pulse Resp BP BP Pulse Ox 05/15/20 15:15 99.0 F 104 H 18 123/70 93 L 05/15/20 15:00 18 05/15/20 11:20 98.9 F 89 18 110/73 97 05/15/20 11:00 18 05/15/20 09:48 95 124/76 05/15/20 08:00 96 05/15/20 07:09 98.4 F 95 18 124/76 96 05/15/20 07:00 96 Weight Weight 186 lb I&O: 05/14/20 05/15/20 05/16/20 06:59 06:59 06:59 Intake Total 4440 Output Total 100 Balance 4440 -100 Result Diagrams: 05/15/20 16:51 05/15/20 05:38 Hospitalist ROS - Review of Systems Gastrointestinal: reports: hematochezia All other systems reviewed; all pertinent +/- noted in HPI/Subj - Medication Medications: Active Medications Generic Name Dose Route Start Last Admin Trade Name Alvin PRN Reason Stop Dose Admin Diltiazem HCl 240 mg 05/13/20 09:00 05/15/20 09:48 Diltiazem Hcl Cd 240 Mg Capsule PO 240 mg DAILY KEN Administration Pantoprazole Sodium 40 mg 05/12/20 21:00 05/15/20 09:49 Pantoprazole 40 Mg Vial IVP 40 mg Q12HR KEN Administration - Exam General Appearance: NAD, awake alert General - other findings: pale ENT: normocephalic atraumatic Neck: supple Heart: RRR, no murmur, no gallops, no rubs, normal peripheral pulses Respiratory: CTAB, no wheezes, no rales, no ronchi, normal chest expansion Gastrointestinal: soft, non-tender, non-distended Gastrointestinal - other findings: Hyperactive bowel sounds Neurological: no focal deficits Psychiatric: normal affect, normal behavior Hosp A/P - Plan GI bleed Stat H&H ordered with repeat in 6 hours May need repeat colonoscopy due to recurrent hematochezia, will contact GI 2 large-bore IVs S/p 5 units of pRBCs IV Protonix twice daily Advance diet once cleared by GI Atrial fibrillation Continue home diltiazem Hypertension Continue to hold home losartan and hydrochlorothiazide in setting of GI bleed. Anxiety Continue home paroxetine Patient, events, and plan of care discussed with Dr. Medrano and Dr. Casey
--- NOTE | 2020-05-15 20:11 | PRG ---
DATE OF SERVICE: 05/15/2020 SUBJECTIVE: Ms. Dutta had no bleeding today. OBJECTIVE: VITAL SIGNS: Temperature 99, pulse 104, blood pressure 123/70. GENERAL: The patient is alert, awake, and oriented. ABDOMEN: Soft, nontender. LABORATORY DATA: White count 3.4, hemoglobin 7.3, had 8.5 at 1600 hours. ASSESSMENT: Gastrointestinal hemorrhage, likely diverticular. Negative angiogram of the SMA. Negative colonoscopy except for diverticulosis. There is bright red blood all throughout the colon, but no bleeding site identified. Negative terminal ileum per Dr. Casey. Negative GI bleeding scan yesterday. Differential diagnosis would include diverticular hemorrhage most likely with negative angiogram of the SMA yesterday and negative tagged scan of the blood noted throughout the colon, but not in the terminal ileum. RECOMMENDATION: 1. If the patient has further bleeding, would recheck nuclear scan and a CT scan of abdomen and pelvis to reveal small bowel lesions. Just rule out small bowel lesions if there is positive bleeding in the colon and could be considered for surgical consultation for subtotal colectomy for diverticular hemorrhage. However, before the surgery, I would get her CAT scan of her full abdomen to make sure there are no small bowel lesions. 2. She does not know if she is taking heavy doses of NSAIDs at home, but she needs to stop those. Outpatient capsule endoscopy could be considered as well, but I think that if she bleeds again, a full CT scan of the abdomen to rule out small bowel lesions to be done and then Surgery needs to be consulted and we will follow along. Job ID: [id number]
[2020-05-15 22:50] LABS: Hemoglobin 7.9 g/dL (12.0-16.0)
[2020-05-16 05:58] LABS: Anion Gap 11 mmol/L (10-20); BUN (Urea Nitrogen) 5 mg/dL (9.8-20.1); Calc. Creatinine Clearance 146 mL/min (70-130); Calcium 7.5 mg/dL (7.8-10.44); Carbon Dioxide 24 mmol/L (23-31); Chloride 108 mmol/L (98-107); Glucose 92 mg/dL (80-115); Potassium 3.4 mmol/L (3.5-5.1); Sodium 140 mmol/L (136-145)
[2020-05-16 06:02] LABS: Hemoglobin 7.2 g/dL (12.0-16.0); Hypochromia SLIGHT = 6-15 cells (100X) (0-5/hpf); Lymphocytes 16 % (21-51); MDiff Complete? YES; Mean Corpuscular HGB CONC 33.4 g/dL (32.0-36.0); Mean Corpuscular Hemoglobin 31.5 pg (27.0-31.0); Mean Corpuscular Volume 94.3 fL (78.0-98.0); Mean Platelet Volume 8.6 fL (7.4-10.4); Metamyelocyte 2 % (0-0); Monocytes 12 % (0-10); Neutrophil 70 % (42-75); Platelet Count 152 thou/uL (130-400); Platelet Morphology Comment Appears Adequate; RBC Distribution Width 13.6 % (11.5-14.5); Red Blood Cell (RBC) Count 2.27 mill/uL (4.20-5.40); White Blood Cell (WBC) Count 2.9 thou/uL (4.8-10.8)
[2020-05-16] MEDS ORDERED: Potassium Chloride 20 MEQ TAB PO SCH (08:15)
[2020-05-16] MEDS: Pantoprazole 40 MG VIAL IVP SCH ×2 (09:58→19:56)
--- NOTE | 2020-05-16 16:22 | PDOC.HOSPP ---
- Subjective Encounter Date: 05/16/20 Encounter Time: 10:00 Subjective: Patient is seen for follow-up on acute GI bleed. She states that last night she had intermittent small amounts of bleeding. Today she has had no current bleeding yet. She is hungry and would like to have her diet advanced. - Objective Vital Signs & Weight: Vital Signs (12 hours) Temp Pulse Resp BP BP Pulse Ox 05/16/20 12:35 98.8 F 77 18 105/67 98 05/16/20 09:59 78 106/70 05/16/20 09:40 98 05/16/20 07:23 98.3 F 78 18 106/70 98 Weight Weight 186 lb I&O: 05/15/20 05/16/20 05/17/20 06:59 06:59 06:59 Intake Total 740 Output Total 100 500 Balance -100 240 Result Diagrams: 05/16/20 13:07 05/16/20 04:46 Hospitalist ROS - Medication Medications: Active Medications Generic Name Dose Route Start Last Admin Trade Name Cjq PRN Reason Stop Dose Admin Diltiazem HCl 240 mg 05/13/20 09:00 05/16/20 09:59 Diltiazem Hcl Cd 240 Mg Capsule PO 240 mg DAILY KEN Administration Pantoprazole Sodium 40 mg 05/12/20 21:00 05/16/20 09:58 Pantoprazole 40 Mg Vial IVP 40 mg Q12HR KEN Administration Sodium Chloride 10 ml 05/13/20 09:44 05/16/20 09:58 Flush - Normal Saline 10 Ml Syringe IVF 10 ml PRN PRN Administration Saline Flush - Exam General Appearance: NAD, awake alert Neck: supple Heart: RRR, no murmur, no gallops, no rubs, normal peripheral pulses Respiratory: CTAB, no wheezes, no rales, no ronchi, normal chest expansion Gastrointestinal: soft, non-tender, non-distended, normal bowel sounds Extremities: no edema Musculoskeletal: no muscle wasting Psychiatric: A&O x 3 Hosp A/P - Plan GI bleed This morning's hemoglobin was 7.2, will repeat in 6 hours Awaiting GI recommendation as patient is still having intermittent bleeding S/p 5 units of pRBCs IV Protonix twice daily Advance diet once cleared by GI, currently on clear liquids Hypokalemia Potassium 3.1 yesterday 3.4 todayreplacement potassium ordered We will continue to trend labs Atrial fibrillation Continue home diltiazem Hypertension Continue to hold home losartan and hydrochlorothiazide in setting of GI bleed. Anxiety Continue home paroxetine Patient, events, and plan of care discussed with Dr. Medrano
--- NOTE | 2020-05-16 22:07 | PRG ---
DATE OF SERVICE: 05/16/2020 SUBJECTIVE: Ms. Dutta had a formed black stool this morning, and this afternoon, she had a light brown stool. She has had no abdominal pain or nausea or vomiting. OBJECTIVE: VITAL SIGNS: Temperature is 98.7, pulse 75, blood pressure 117/87. GENERAL: She is in no acute distress. Alert and oriented x3. LUNGS: Clear to auscultation bilaterally. HEART: Regular rate and rhythm without murmur. ABDOMEN: Soft, nontender, and nondistended. Bowel sounds are present. EXTREMITIES: No lower extremity edema. LABORATORY DATA: Her hemoglobin is 8.0. IMPRESSION: 1. GI bleed, most likely diverticular. Colonoscopy was negative otherwise and angiogram was negative. Her bleeding has now resolved and she is passing light brown stool. 2. Anemia of acute blood loss. RECOMMENDATIONS: 1. Avoid NSAIDs. 2. Advance to a solid diet in the morning. 3. She should be ready to discharge home tomorrow if her hemoglobin is stable and she has no further bleeding. Job ID: [id number]
[2020-05-17] MEDS: Pantoprazole 40 MG VIAL IVP SCH (08:09)
[2020-05-17 08:35] LABS: #Eosinphils 0.1 thou/uL (0.0-0.7); #Lymphocytes 0.5 thou/uL (1.20-3.40); #Monocytes 0.2 thou/uL (0.11-0.59); #Neutrophils 1.4 thou/uL (1.40-6.50); %Basophils 1.2 % (0.0-1.0); %Eosinophils 2.8 % (0.0-10.0); %Lymphocytes 23.7 % (21.0-51.0); %Neutrophils 62.2 % (42.0-75.0); Hemoglobin 7.5 g/dL (12.0-16.0); Mean Corpuscular HGB CONC 33.7 g/dL (32.0-36.0); Mean Corpuscular Hemoglobin 32.8 pg (27.0-31.0); Mean Corpuscular Volume 97.3 fL (78.0-98.0); Mean Platelet Volume 7.8 fL (7.4-10.4); Platelet Count 164 thou/uL (130-400); RBC Distribution Width 14.2 % (11.5-14.5); Red Blood Cell (RBC) Count 2.28 mill/uL (4.20-5.40); White Blood Cell (WBC) Count 2.3 thou/uL (4.8-10.8)
[2020-05-17 08:52] LABS: Anion Gap 10 mmol/L (10-20); BUN (Urea Nitrogen) Less than 4 mg/dL (9.8-20.1); Calc. Creatinine Clearance 138 mL/min (70-130); Calcium 7.6 mg/dL (7.8-10.44); Carbon Dioxide 29 mmol/L (23-31); Chloride 107 mmol/L (98-107); Glucose 92 mg/dL (80-115); Magnesium 1.7 mg/dL (1.6-2.6); Potassium 3.7 mmol/L (3.5-5.1); Sodium 142 mmol/L (136-145)
--- NOTE | 2020-05-17 10:57 | PRG ---
DATE OF SERVICE: 05/17/2020 SUBJECTIVE: Ms. Dutta is feeling well. No dizziness. No abdominal pain. Her last bowel movement was yesterday and was normal brown in color. OBJECTIVE: VITAL SIGNS: Temperature 97.9, pulse 73, blood pressure 106/71, 98% oxygen saturation on room air. GENERAL: No acute distress, sitting up in bed comfortably. She is pale. HEART: Regular rate and rhythm. LUNGS: Clear to auscultation bilaterally. ABDOMEN: Soft, nontender to palpation. EXTREMITIES: No peripheral edema. LABORATORY STUDIES: Hemoglobin 7.5, overall stable in the past couple of days; WBC 2.3; platelets 164. INR 1.1. Sodium 140, potassium 3.4, BUN only 5, creatinine 0.51. ASSESSMENT AND PLAN: 1. Gastrointestinal bleed, most likely diverticular. This appears to have resolved. Her last bowel movement was nonbloody. Hemoglobin has been stable in the past couple of days overall. Colonoscopy was otherwise negative and angiogram was negative. 2. Anemia of acute blood loss. Hemoglobin is stable in the past couple of days. She is tolerating her diet. From a GI standpoint, I think the patient could be discharged from the hospital later today if cleared by the primary service. GI will sign off. Please call back anytime with questions or concerns or if there is concern for recurrent bleeding. Job ID: [id number]
[2020-05-17] MEDS ORDERED: Magnesium 2 GM/50 ML 2 GM in Premix Bag 1 BAG IVPB SCH (12:00)
[2020-05-17 12:29] VITALS: BP 93/67; TEMP 98.8
--- NOTE | 2020-05-17 12:43 | PDOC.DS.DS ---
Provider - Provider Date of Admission: 05/12/20 13:32 Date of Discharge: 05/17/20 Admitting Provider: Vamshi Medrano DO Consultations: Gastroentrology Primary Care Physician: Jc Soni DO Course - Hospital Course Hospital Course: Admitted for hematochezia for which Gastroenterology consult was placed. She underwent a colonoscopy that showed diverticular disease without diverticulitis. No source for bleeding identified. Angiogram was negative as well. Blood in stool resolved and patient has tolerated PO intake this morning. Advised by GI team to avoid NSAIDs which she had taken for a few days prior to her symptoms starting. She takes a baby aspirin as well. Seen by GI today and cleared from GI standpoint for discharge home. Hemoglobin is stable at time of discharge. Patient feeling well and asymptomatic at present. Procedures: S/p abdominal angiography 05/13/2020: negative. Colonoscopy 05/13/2020: Large amount of retained blood and blood clot seen throughout the entire colon. Severe pancolonic diverticulosis in the ascending, descending and sigmoid colons. No source of bleeding identified. No etiology for anemia/bleeding found. Resuscitation Status: 05/12/20 13:37 Resuscitation Status Routine Co-Sign Provider: Resuscitation Status: FULL: Full Resuscitation - Labs Lab Results: 05/17/20 08:13 05/17/20 08:13 Abnormal Lab Results - Last 48 hrs 05/12/20 10:49: Crossmatch See Detail 05/15/20 16:51: Hgb 8.5 L, Hct 24.4 L 05/15/20 22:43: Hgb 7.9 L, Hct 23.3 L 05/16/20 04:46: Potassium 3.4 L, Chloride 108 H, BUN 5 L, Creatinine 0.51 L, Bryan cium 7.5 L 05/16/20 04:46: WBC 2.9 L, RBC 2.27 L, Hgb 7.2 L, Hct 21.4 L, MCH 31.5 H, Lymphocytes % (Manual) 16 L, Monocytes % (Manual) 12 H 05/16/20 13:07: Hgb 8.0 L, Hct 24.0 L 05/17/20 08:13: BUN Less than 4 L, Creatinine 0.54 L, Calcium 7.6 L 05/17/20 08:13: WBC 2.3 L, RBC 2.28 L, Hgb 7.5 L, Hct 22.2 L, MCH 32.8 H, Basophils % 1.2 H, Lymphocytes # 0.5 L - Physical Exam Vitals: Vital Signs (12 hours) Temp Pulse Resp BP BP BP BP 05/17/20 11:45 98.8 F 78 16 93/67 05/17/20 08:15 05/17/20 08:09 73 106/71 05/17/20 07:20 97.9 F 73 18 106/71 05/17/20 03:21 98.1 F 74 19 109/65 Pulse Ox 05/17/20 11:45 97 05/17/20 08:15 98 05/17/20 08:09 05/17/20 07:20 98 05/17/20 03:21 97 Weight Weight 186 lb Physical Exam: The patient was seen and examined on the day of discharge. Problem - Discharge Plan Assessment: Patient without any source of bleeding identified, red to be likely diverticular. Symptoms fully resolved on day of discharge. Cleared by GI and tolerating PO intake. H/H stable and not requiring transfusion. BP stable. Asymptomatic. Plan of Treatment: Advised to avoid NSAIDs but continue baby ASA. Follow-up with PCP within 1 week, repeat labs to assess hemoglobin/hematocrit Follow-up with [employer] as scheduled. Return to ED if any recurring/worsening symptoms. - Problem (1) Diverticular disease of large intestine Code(s): K57.30 - DVRTCLOS OF LG INT W/O PERFORATION OR ABSCESS W/O BLEEDING Status: Chronic (2) Anemia Code(s): D64.9 - ANEMIA, UNSPECIFIED Status: Acute (3) GI bleed Code(s): K92.2 - GASTROINTESTINAL HEMORRHAGE, UNSPECIFIED Status: Resolved Qualifiers: GI bleed type/associated pathology: anorectal hemorrhage Qualified Code(s): K62.5 - Hemorrhage of anus and rectum Plan - Discharge Medications Home Medications: Medication Instructions Recorded Confirmed Type Cholecalciferol (Vitamin D3) 5,000 unit PO QAM 07/07/13 05/12/20 History [Vitamin D3] Loratadine [Claritin] 10 mg PO DAILY 07/07/13 05/12/20 History Multivitamin [Multivitamins] 1 cap PO QAM 07/07/13 05/12/20 History Fluticasone Propionate [Flonase 2 spray EA NARE QAM 04/26/16 05/12/20 History Nasal Leroy] Losartan/Hydrochlorothiazide 1 tablet PO DAILY 04/26/16 05/12/20 History [Losartan-Hctz 100-12.5 mg Tab] Pantoprazole [Protonix] 40 mg PO QPM 04/26/16 05/12/20 History Diltiazem HCl [Diltiazem 24Hr CD] 240 mg PO DAILY 06/30/18 05/12/20 History PARoxetine HCl [Paxil] 1.5 tab PO DAILY 06/30/18 05/12/20 History Dronedarone HCl [Multaq] 400 mg PO BID-WM 08/04/19 05/12/20 History Gabapentin [Neurontin] 1 cap PO QPM 08/04/19 05/12/20 History Apixaban [Eliquis] 1 tab PO BID #0 08/06/19 05/12/20 Rx Ferrous Sulfate 325 mg PO BID #60 tablet 08/06/19 05/12/20 Rx Allergies: No Known Allergies Allergy (Verified 05/12/20 16:49) Additional comments: Follow-up with primary care physician within 1 week for repeat labs. Follow-up with GI doctor as scheduled. Return if any worsening/recurring symptoms or new concerning symptoms. - Discharge Instructions Activity:: Activity as Tolerated Nourishment:: Heart Healthy Diet - Follow up Plan Referrals: Дмитрий Pearson MD [Active] - Jc Soni DO [Primary Care Provider] - Deangelo Casey MD [Active] - Disposition: HOME Quality - Care Measures CORE MEASURES:: N/A - Stroke/TIA Did you prescribe antithrombotic therapy?: No Specify reason for no DC antithrombotic therapy: Treatment not indicated Did you prescribe anticoagulant for A Fib/Flutter?: No Specify reason for no DC anticoagulant: Treatment not indicated Did you prescribe a statin medication?: No Specify reason for no DC statin medication: Treatment not indicated
== END 2020-05-17 14:25 | disposition home or self-care (01) | DRG 378 ==
LOC: ERS 10:06 → SURG B 13:32
PROVIDERS: ADMIT Family Medicine; ATTEND Hospitalist
PROC: 30233N1 Transfusion of Nonautologous Red Blood Cells into Peripheral Vein, Percutaneous Approach (ICD-10-PCS; 2020-05-12)
PROC: 0DJD8ZZ Inspection of Lower Intestinal Tract, Via Natural or Artificial Opening Endoscopic (ICD-10-PCS; principal; 2020-05-13)
PROC: B4101ZZ Fluoroscopy of Abdominal Aorta using Low Osmolar Contrast (ICD-10-PCS; 2020-05-13)
PROC: B4141ZZ Fluoroscopy of Superior Mesenteric Artery using Low Osmolar Contrast (ICD-10-PCS; 2020-05-13)
DX: K57.31 Diverticulosis of large intestine without perforation or abscess with bleeding (principal); D62 Acute posthemorrhagic anemia; K21.9 Gastro-esophageal reflux disease without esophagitis; Z20.828 Contact with and (suspected) exposure to other viral communicable diseases; I10 Essential (primary) hypertension; F41.9 Anxiety disorder, unspecified; I48.91 Unspecified atrial fibrillation; E87.6 Hypokalemia; Z98.84 Bariatric surgery status; Z90.49 Acquired absence of other specified parts of digestive tract
CPT/HCPCS: 36246; 36415; 36430; 75625; 76942; 78278; 80048; 80053; 83735; 84484; 85007; 85025; 85027; 85610; 85730; 86850; 86900; 86901; 93005; 96374; 99152; 99153; A9604; C9113; J1200; J1644; J2250; J2405; J2704; J3010; J3475; P9016; U0002

== ENCOUNTER 2022-05-23 08:40 | Outpatient (CLI) | payer MEDICARE, MEDICAID ==
[2022-05-23 09:31] LABS: #Eosinphils 0.1 10x3/uL (0.0-0.5); #Monocytes 0.4 10x3/uL (0.0-1.1); #Neutrophils 3.1 10x3/uL (1.5-8.4); %Basophils 0.5 % (0.0-2.0); %Eosinophils 1.9 % (0.0-6.0); %Lymphocytes 13.6 % (18.0-47.0); %Monocytes 8.6 % (0.0-10.0); %Neutrophils 74.7 % (40.0-75.0); Mean Corpuscular HGB CONC 32.3 g/dL (32.0-36.0); Mean Corpuscular Hemoglobin 31.1 pg (27.0-33.0); Mean Corpuscular Volume 96.4 fl (81.6-98.3); Mean Platelet Volume 10.5 fl (7.4-10.4); Platelet Count 242 10x3/uL (150-450); RBC Distribution Width 13.2 % (11.5-14.5); Red Blood Cell (RBC) Count 3.86 10x6/uL (3.90-5.03); White Blood Cell (WBC) Count 4.2 10x3/uL (3.5-10.5)
[2022-05-23 10:08] LABS: Anion Gap 15 mmol/L (10-20); BUN (Urea Nitrogen) 14 mg/dL (9.8-20.1); Calc. Creatinine Clearance 0 mL/min (70-130); Calcium 9.3 mg/dL (7.8-10.44); Carbon Dioxide 27 mmol/L (23-31); Chloride 105 mmol/L (98-107); Estimated GFR 97; Glucose 106 mg/dL (80-115); Potassium 3.5 mmol/L (3.5-5.1); Sodium 143 mmol/L (136-145)
== END 2022-05-23 08:41 | disposition home or self-care (01) ==
LOC: LABBT 08:40
PROVIDERS: ATTEND Orthopaedic Surgery Hand Surgery
DX: Z01.818 Encounter for other preprocedural examination (principal); G56.02 Carpal tunnel syndrome, left upper limb; M65.332 Trigger finger, left middle finger; M65.342 Trigger finger, left ring finger
CPT/HCPCS: 80048; 85025; 93005; 93010

== ENCOUNTER 2022-05-27 07:52 | Day surgery (SDC) | payer MEDICARE, MEDICAID ==
[2022-05-22 13:32] VITALS: BMI 34.5
[2022-05-27] MEDS ORDERED: Sodium Chloride 0.9% 100 ML ONE (09:15)
[2022-05-27] MEDS ORDERED: CEFAZOLIN 2 GM VIAL ONE (09:15)
[2022-05-27] MEDS ORDERED: HYDROmorphone 2 MG/ML VIAL ONE (09:27)
[2022-05-27] MEDS ORDERED: Lidocaine 1% PF 5 ML VIAL ONE (09:42)
[2022-05-27] MEDS ORDERED: Ketorolac Tromethamine 30 MG/ML VIAL ONE (09:42)
[2022-05-27] MEDS ORDERED: PROPOFOL 200 MG/20 ML VIAL ONE (09:42)
[2022-05-27] MEDS ORDERED: Ondansetron PF 4 MG/2 ML Vial ONE (09:42)
[2022-05-27] MEDS ORDERED: Dexamethasone 20 MG/5 ML VIAL ONE (09:42)
[2022-05-27] MEDS ORDERED: Bupivacaine PF 0.5% 30 ML VIAL ONE (09:43)
== END 2022-05-27 12:31 | disposition home or self-care (01) ==
LOC: SDC 07:52
PROVIDERS: ATTEND Orthopaedic Surgery Hand Surgery
PROC: 0LN80ZZ Release Left Hand Tendon, Open Approach (ICD-10-PCS; principal; 2022-05-27)
PROC: 0LN80ZZ Release Left Hand Tendon, Open Approach (ICD-10-PCS; 2022-05-27)
PROC: 01N50ZZ Release Median Nerve, Open Approach (ICD-10-PCS; 2022-05-27)
DX: G56.02 Carpal tunnel syndrome, left upper limb (principal); M65.332 Trigger finger, left middle finger; M65.342 Trigger finger, left ring finger; I48.91 Unspecified atrial fibrillation; M85.80 Other specified disorders of bone density and structure, unspecified site; E66.9 Obesity, unspecified; Z68.34 Body mass index [BMI] 34.0-34.9, adult; Z79.899 Other long term (current) drug therapy; Z98.84 Bariatric surgery status
CPT/HCPCS: J1100; J1170; J1885; J2405; J2704; J3490; S0020

== ENCOUNTER 2023-03-11 12:56 | Outpatient (CLI) | payer OTHER, MEDICAID | END 2023-03-11 12:57 | disposition home or self-care (01) | LOC: BICMAMMO 12:56 | PROVIDERS: ATTEND Family Medicine | DX: Z12.31 Encounter for screening mammogram for malignant neoplasm of breast (principal); Z13.820 Encounter for screening for osteoporosis; M81.0 Age-related osteoporosis without current pathological fracture | CPT/HCPCS: 77063; 77067; 77080 ==